=== PATIENT | male | born 1945 | race Caucasian/White ===

== ENCOUNTER 2017-03-12 08:05 | Emergency (ER) | payer MEDICARE ==
[~2017-03-12] VITALS: Ht 170.1 cm; Wt 77.1 kg
[~2017-03-12 08:05] MED LIST: ALPHAGAN-P 0.2%5 ML OPH; AMLODIPINE BESY1 TAB PO; AMLODIPINE BESY10 MG PO; AMLODIPINE BESYL5 MG PO; ANAPROX DS550 MG PO; BENADRYL25 MG PO; BRIMONIDINE TAR10 ML OPH; CETIRIZINE5 MG PO; CLONIDINE0.1 MG PO; COMBIVENT RESPIM4 GM INH; COSOPT 2%-0.5%10 ML OPH; COUMADIN2.5 M1 PO; COUMADIN5 M2 PO; DARVOCET N 1001 TAB PO; DAYPRO600 M1 PO; DILTIAZEM HCL120 M1 PO; DILTIAZEM360 MG PO; DORZOLAMIDE HYD10 M2 OP; HYDROCHLOROTHIA25 M1 PO; LATANOPROST2.5 ML IO; LEXAPRO10 MG PO; LISINOPRIL40 MG PO; LOPRESSOR100 M1 PO; LOPRESSOR100 MG PO; LOPRESSOR50 MG PO; METOPROLOL TAR100 M1 PO; MINOXIDIL2.5 MG PO; PERCOCET 325 MG1 TA3 PO; PRADAXA150 MG PO; PRAVACHOL40 MG PO; PRAVASTATIN SOD40 MG PO; PROVENTIL0.09 MG/A1 INH; PROVENTIL0.09 MG/AC IH; ROBAXIN750 MG PO; SODIUM CHLORIDE1 GM PO; SYMBICORT1 AE1 INH; ULTRAM50 MG PO; VITAMIN D32000 UNIT PO; Vicodin 5/500 505 MG PO; XALATAN 0.005%2.5 ML INTRAOC; [UNRECOGNIZED DRUG - OTHER]
[2017-03-12 08:13] VITALS: BP 147/69
[2017-03-12] MEDS ORDERED: NORVASC5 MG PO (08:23)
[2017-03-12] MEDS ORDERED: TRAZODONE50 MG PO (08:23)
[2017-03-12] MEDS ORDERED: LIPITOR20 MG PO (08:24)
[2017-03-12] MEDS ORDERED: PLAVIX75 M1 PO (08:24)
[2017-03-12] MEDS ORDERED: MELATONIN3 MG PO (08:25)
[2017-03-12] MEDS ORDERED: LEXAPRO10 MG PO (08:25)
[2017-03-12] MEDS ORDERED: BRIMONIDINE TAR15 ML OPH (08:26)
[2017-03-12] MEDS ORDERED: LASIX20 MG PO (08:26)
[2017-03-12] MEDS ORDERED: LATANOPROST2.5 ML OP (08:27)
[2017-03-12] MEDS ORDERED: COSOPT 2%-0.5%10 ML OPH (08:27)
[2017-03-12] MEDS ORDERED: PRADAXA150 MG PO (08:31)
== END 2017-03-12 09:48 | disposition home or self-care (01) ==
LOC: ED 08:05
DX: S82.235A Nondisplaced oblique fracture of shaft of left tibia, initial encounter for closed fracture (principal); F17.200 Nicotine dependence, unspecified, uncomplicated; I10 Essential (primary) hypertension; I48.91 Unspecified atrial fibrillation; E78.5 Hyperlipidemia, unspecified; J44.9 Chronic obstructive pulmonary disease, unspecified; Z79.899 Other long term (current) drug therapy; X50.1XXA Overexertion from prolonged static or awkward postures, initial encounter; Y93.89 Activity, other specified; Y92.9 Unspecified place or not applicable; Y99.9 Unspecified external cause status

== ENCOUNTER → 2017-03-28 | Outpatient (CLI) | payer MEDICARE ==
[~2017-03-28] MED LIST changes: +BRIMONIDINE TAR15 ML OPH; +LASIX20 MG PO; +LATANOPROST2.5 ML OP; +LIPITOR20 MG PO; +MELATONIN3 MG PO; +NORVASC5 MG PO; +PLAVIX75 M1 PO; +TRAZODONE50 MG PO
== END | disposition home or self-care (01) ==
LOC: ORTHO 00:28
DX: S82.209D Unspecified fracture of shaft of unspecified tibia, subsequent encounter for closed fracture with routine healing (principal); X58.XXXD Exposure to other specified factors, subsequent encounter

== ENCOUNTER 2017-04-02 06:27 | Inpatient (IN) | payer MEDICARE ==
[~2017-04-02] VITALS: Ht 170.2 cm; Wt 88.9 kg
[2017-04-02] VITALS (8 sets, daily range): BP systolic 117–181; BP diastolic 73–96
--- NOTE | ~2017-04-02 | PR ---
[place], [place] PROGRESS NOTE NAME: LO STRAUSS UNIT #: [id number] ROOM: 530 DOCTOR: VASYL LUNDBERG MDMADYSON BIRTHDATE: [birth year] DOS: 04/04/2017 SUBJECTIVE: The patient reported reduction in symptoms of shortness of breath. Denies symptoms of chest pain. Denies any symptoms of abdominal pain. He denies any symptoms of hemoptysis. OBJECTIVE: VITAL SIGNS: For the patient, which had been recorded, showed the temperature of the patient noted as normal, respiratory rate of 20, heart rate of 69, blood pressure 157/84. The pulse oxygen saturation of the patient recorded as 97% on 2 L nasal cannula. HEENT: No acute change. NECK: Supple. CARDIOVASCULAR: S1, S2 is audible. LUNGS: The patient was noted without any crackles or wheezing, breath sounds still noted diminished in the lower portion of the lungs bilaterally. Echocardiogram for the patient that was done for this patient was noted technically limited study for the patient. Overall, left ventricular ejection fraction was described probably normal. Possibility of diastolic dysfunction, the patient was also described. CBC of the patient that was done for the patient this morning, WBC count 12.0, hemoglobin 9.1, hematocrit 26.0, platelet count of 226,000. The BMP of patient this morning was noted BUN of 24, creatinine 1.75, sodium 126, glucose 132. Blood culture of the patient from admission showed no bacterial growths. IMPRESSION: 1. The patient with bilateral pleural fluid, most likely related to congestive heart failure, diastolic dysfunction. 2. Acute exacerbation of COPD was also noted for this patient as well. 3. Acute pneumonia also suspected and treated. 4. Hypernatremia, most likely related to current ongoing acute pulmonary pathology. The patient with pleural fluid as well. PLAN OF TREATMENT: The patient has been continued on the intravenous antibiotics, bronchodilators, corticosteroids and other treatment. Continuation of the patient's current medical management as in progress. Repeat another chest x-ray to reassess. Possible thoracentesis could be considered in the morning for this patient as well as the pleural fluid remains persistent for this patient. [place], [place] PROGRESS NOTE NAME: LO STRAUSS UNIT #: [id number] ROOM: 530 DOCTOR: MADYSON WILCOX MD BIRTHDATE: [birth year] MADYSON FALLON MD CM:PNTRANS [id number] MADYSON LUNDBERG MD 04/05/17 0034 interface
--- NOTE | ~2017-04-02 | PR ---
[place], [place] PROGRESS NOTE NAME: LO STRAUSS [facility] #: [id number] UNIT #: [id number] ROOM: 530 DOCTOR: VASYL LUNDBERG MD,MADYSON BIRTHDATE: [birth year] DOS: 04/03/2017 PULMONARY FOLLOWUP SUBJECTIVE: He was seen and examined on date of service 04/03/2017 The patient has been comfortably resting on his bed at this time. Shortness of breath has been noted, somewhat decreased. The cough has been noted decreased, patient not resolved. The cough was described , symptoms of acute chest pain at this time. OBJECTIVE: VITAL SIGNS: For the patient which has been recorded showed the temperature of the patient recorded as normal. The respiratory rate of the patient recorded as 20, heart rate 105, blood pressure 143/83. HEENT: No acute change at the present time. Chronic obesity noted. CARDIOVASCULAR: S1, S2 audible. LUNGS: The patient was noted without any wheezing. Scattered crackles of lung were noted. ABDOMEN: Soft, nontender. LABORATORY DATA: The patient's CT scan of the chest that was obtained yesterday for patient without contrast was reviewed for this patient. Bilateral [id number] sized pleural fluid was noted with the patient without any evidence of acute pulmonary infiltration. The chest x-ray was repeated this morning, shows persistent findings of pleural effusion at this time. The patient's BMP for this patient, BUN 20, creatinine 1.47, glucose 130. CBC of the patient's, hemoglobin 9.4, hematocrit 26.6. Platelet count was normal. IMPRESSION: The patient who has been currently admitted to the hospital noted acute exacerbation of chronic obstructive pulmonary disease with possibly superimposed. Acute congestive heart failure was suspected very likely with bilateral pleural fluid. There was no radiologic evidence of pneumonia noted with the patient on CT scan of the chest. PLAN OF TREATMENT: Cardiology assessment of the patient if not ordered for this patient should be done. Monitor objective for this patient. Diuretic therapy of the patient would be considered. Continue other supportive therapy, plan of management, other care and treatment and therapies. Usual care are the plan of management. Supportive care. Reduce the dose of Solu-Medrol to 40 mg b.i.d., as the wheezing has been noted better. Consider thoracentesis if the pleural fluid remains persistent. [place], [place] PROGRESS NOTE NAME: LO STRAUSS UNIT #: [id number] ROOM: [facility] DOCTOR: MADYSON WILCOX MD BIRTHDATE: [birth year] MADYSON FALLON MD CM:LG [id number] MADYSON LUNDBERG MD 04/03/17 1006 interface
--- NOTE | ~2017-04-02 | PROC NOTE ---
[place], [place] PROCEDURE NOTE NAME: LO STRAUSS [facility] #: [id number] UNIT #: [id number] ROOM: 530 DOCTOR: GAURAV JIMENEZ BIRTHDATE: [birth year] DOS: MODIFIED BARIUM SWALLOW BACKGROUND HISTORY AND MEDICAL HISTORY: The patient ability was referred for a modified barium swallow with primary diagnosis of COPD exacerbation, history of renal failure, pneumonitis, GERD, CHF and with recent chest x-ray, right lower lobe bronchopneumonia and pleural effusion were reported. The patient has natural teeth, many were missing, but reports he eat a regular diet. The patient was upset. He reports he has not eaten since yesterday and was waiting for his breakfast when he was brought for modified barium swallow. I explain to patient, physician wanted to assess his swallow. The patient denies history of chronic pneumonia, reports though 2 weeks ago, he was hospitalized for having difficulty breathing. The patient denies neuro history. METHODS AND PROCEDURES: The patient was on a gurney. He was seated upright and viewed in the lateral plane. This study was done in conjunction with Dr. Diop. The patient was able to administer liquid via cup and straw, applesauce via teaspoon and a cracker coated with barium by himself and follow directions. ORAL PHASE: Adequate oral phase, adequate mastication, oral sensory awareness. No oral residue. Adequate ability to form and propel cohesive bolus from the oral to pharyngeal phase. PHARYNGEAL PHASE: The patient demonstrated functional adequate normal oropharyngeal phase for his age. He had mild residue, but when cued for dry swallows, it was cleared on all consistencies. The patient did not demonstrate any aspiration. His laryngeal elevation appeared adequate. RECOMMENDATIONS AND IMPRESSION: No therapy or diet modifications recommended as oral and pharyngeal phases are judged as normal and functional. Thank you for this referral. GAURAV JIMENEZ CM:PROCNOTE:PROCEDURE NOTE [id number] GAURAV JIMENEZ
--- NOTE | ~2017-04-02 | CON ---
[place], [place] REPORT OF CONSULTATION NAME: LO STRAUSS [facility] #: [id number] UNIT #: [id number] ROOM: 530 DOCTOR: MADYSON WILCOX MD BIRTHDATE: [birth year] DOS: 04/02/2017 CONSULTATION REQUESTED BY: Hospitalist services. REASON FOR CONSULTATION: To assess the patient for ongoing acute respiratory symptoms. HISTORY OF PRESENT ILLNESS: This 71-year-old white male, unknown, with past history of diagnosis of COPD. The patient presented to the hospital Emergency Room by the family members. The patient has been noted with increased symptoms of shortness breath which has been occurring with exertion. The shortness of breath of the patient related noted at rest as well. The patient does have a chronic shortness of breath, but the recent worsening of the patient noted in the past couple of days. He does report symptoms of wheezing associated with current symptoms, but denies any cough. Denies symptoms of chest pain or chest tightness. Denies symptoms of hemoptysis or a chest trauma. The [facility] for [facility] problem. He was passed recently for the patient's possibility of oxygen supplementation to be prescribed for this patient by the family members and the patient was asked to have an appointment made for this patient for that. The patient was [facility], but not seen as the doctor was sick and reported to the patient he could not see the patient yesterday. REVIEW OF SYSTEMS: CONSTITUTIONAL SYMPTOMS: The patient noticed symptoms of fatigue and tiredness without symptoms of fever or chills. EYES: Denies any burning, redness, or tenderness. EARS, NOSE, THROAT SYMPTOMS: No sore throat, hoarseness, otalgia, postnasal drainage. CARDIOVASCULAR SYMPTOMS: Denies anginal pain, edema or other pain of the lower extremity noted. Intermittent edema of the lower extremities at times. GASTROINTESTINAL SYMPTOMS: Denies dysphagia, nausea, vomiting, diarrhea, abdominal pain, hematemesis, melena, dysphagia, or any abnormal weight loss history. MUSCULOSKELETAL: Denies acute joint pain, redness, or tenderness. CENTRAL NERVOUS SYSTEM: No dizziness, headache, diplopia, syncopal episodes or tingling sensation of the extremities. Remaining systems were reviewed with the patient, they were noted all negative. PAST MEDICAL HISTORY: 1. The patient was known with history of congestive heart failure, systolic/diastolic dysfunction unknown. 2. History of atrial fibrillation. 3. History of COPD/centrilobular emphysema. 4. Gastroesophageal reflux disease. 5. Essential hypertension. 6. History of peripheral vascular disease for this patient as well. 7. History of depression. 8. Past history of alcohol use. [place], [place] REPORT OF CONSULTATION NAME: LO STRAUSS UNIT #: [id number] ROOM: [facility] DOCTOR: SURI WILCOX MDM BIRTHDATE: [birth year] PAST SURGICAL HISTORY: 1. 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 2. Carotid endarterectomy. 3. Appendectomy. 4. Surgery of the left leg as well. SOCIAL HISTORY: The patient was noted to use 1 beer a day. Denies history of alcohol use or any illicit drugs. He has been noted with tobacco use for longtime, the patient since teenager, pack of cigarettes per day, that was discontinued in the end of 2015. Denies any history of illicit drug use. There was no history of occupation related pulmonary exposure. FAMILY HISTORY: The patient's both parents have been . HOME MEDICATIONS: Listed use of: 1. Proventil HFA inhaler p.r.n. use. 2. Norvasc 5 mg p.o. b.i.d. 3. Lipitor 20 mg p.o. daily. 4. Symbicort 160/4.5 two puffs b.i.d. 5. Plavix 75 mg daily. 6. Pradaxa 150 mg b.i.d. 7. Pepcid 20 mg daily. 8. Folic acid 1 mg p.o. daily. 9. Lasix 20 mg p.o. daily. 10. Melatonin 3 mg daily at bedtime. 11. Metoprolol tartrate 50 mg p.o. t.i.d. 12. Spiriva 18 mcg inhalation daily. 13. Trazodone 50 mg at bedtime and other p.r.n. medications and use of 3 different eyedrops. DRUG ALLERGIES: Noted for no known drug allergies. PHYSICAL EXAMINATION: GENERAL: A 71-year-old white male currently noted to be awake and alert without any distress. VITAL SIGNS: Height of 5 feet 7 inches, weight of 196 pounds, BMI 30.7. Vital signs show a temperature normal, respiratory rate 20-18, heart rate of 96-77, blood pressure 147/69-139/87. Intake for this patient and output was not recorded as yet. Pulse oxygen saturation was noted as 97% on room air. HEENT: Examination shows head was atraumatic. Eyes nonicterus with moderate obesity. Neck was Supple. Decreased posterior pharyngeal space. CARDIOVASCULAR: S1, S2 audible. LUNGS: The patient was noted with moderate reduction of the breath sounds noted in the lungs with expiratory wheezing. There were no crackles. ABDOMEN: Soft, nontender and obese. EXTREMITIES: The patient had above knee amputation of right lower extremity, mild edema of the left lower extremity was noted. MUSCULOSKELETAL: Showed no deformities. SKIN: Showed no lesions or rashes of visible areas. [place], [place] REPORT OF CONSULTATION NAME: LO STRAUSS UNIT #: [id number] ROOM: [facility] [birth year] LABORATORY DATA: Lactic acid of the patient on 03/28/2017 was noted at 1.2. CBC of the patient of 04/02/2017, WBC count was normal, hemoglobin of 10.2, hematocrit 28.3, platelet count 231,000, all noted normal. The INR today was noted 1.4, which is subtherapeutic. The BMP this morning, BUN 16, creatinine 1.31, glucose 103, sodium 120, chloride of 83 for this patient was noted, proBNP 7805. Chest x-ray of the patient that was done when the patient in the Emergency Room, shows bibasilar area of infiltration of the patient noted with prominent pulmonary arteries, rule out right hilar lymphadenopathy. The chest x-ray of the patient previously of 05/14/2016, the patient was noted with prominent hilar area for this patient without any pulmonary infiltration. IMPRESSION: 1. The patient who has been currently noted with current acute respiratory symptoms with possibility of acute exacerbation of COPD for this patient with basilar area of atelectasis, superimposed acute pneumonia for this patient, would be considered as acute community-acquired infection in the patient with gram-positive organisms. 2. History of nicotine dependence until about 7 months ago. 3. The patient with mild anemia for this patient was noted as well. 4. Possible diagnosis for the patient to be clinically considered as obstructive sleep apnea disorder as well. 5. History of essential hypertension of the patient was noted as well. 6. Elevation of creatinine, possibly acute kidney injury secondary to intravascular volume contraction would be considered. PLAN OF TREATMENT: The patient has been admitted to the hospital, will be started on IV Solu-Medrol and bronchodilators every 4 hours. Sputum for Gram stain culture will be obtained. The antibiotic, Levaquin, will suffice for the patient for the treatment of community-acquired infection. Repeat chest x-ray, PA and lateral view in the morning for the patient's most definitive assessment. Also consider obtaining a CT scan of the chest with IV contrast upon improvement in the creatinine for this patient to rule out right hilar lymphadenopathy. The oxygen supplementation to be given in case if the oxygen saturation less than 92%. Supportive therapy plan and management. Other usual care plan of therapies. Thanks for allowing me to participate in the care of this patient. [place], [place] REPORT OF CONSULTATION NAME: LO STRAUSS UNIT #: [id number] ROOM: [facility] DOCTOR: MADYSON WILCOX MD BIRTHDATE: [birth year] MADYSON FALLON MD CM:CONSTR:REPORT OF CONSULTATION 1223 04/03/17 0210 interface
--- NOTE | ~2017-04-02 | PR ---
[place], [place] PROGRESS NOTE NAME: LO STRAUSS UNIT #: [id number] ROOM: 530 DOCTOR: MADYSON WILCOX MD BIRTHDATE: [birth year] DOS: 04/05/2017 SUBJECTIVE: He has been doing very well at this time with reduction of symptoms of shortness breath was noted. There was mild cough. There were no symptoms of chest pain or any abdominal pain. OBJECTIVE: VITAL SIGNS: Normal temperature, respiratory rate 18, heart rate of 65, blood pressure 140/76, 131/84. Pulse oxygen saturation on 2 liters nasal cannula 99% saturation. HEENT: Examination shows chronic obesity. NECK: Supple, short and obese. CARDIOVASCULAR: S1, S2 audible. LUNGS: The patient was noted without any crackles, rhonchi or wheezing at the present time. Breaths are noted mildly decreased in the lower portion of the lungs bilaterally. ABDOMEN: Soft and nontender. EXTREMITIES: Remains unchanged. LABORATORY DATA: BMP today: BUN 26, creatinine 1.76. Chest x-ray that was done as it ordered. Review of the patient shows improvement in the pneumonia. The patient noted pleural fluid. The pleural fluids were noted small for this patient at this time bilaterally. However, the resolution of the infiltration noted incomplete. IMPRESSION: 1. Resolving acute pneumonia with bilateral pleural fluid for this patient as well. 2. Improvement in the respiratory status. The patient has been continued with gradual and progressive improvement as noted. PLAN OF TREATMENT: The patient does have an IV line for this patient at this time, getting oral antibiotics. That will be continued. Discharge planning could be started the patient on oral antibiotics in the next 24 hours. [place], [place] PROGRESS NOTE NAME: LO STRAUSS UNIT #: [id number] ROOM: 530 DOCTOR: MADYSON WILCOX MD BIRTHDATE: [birth year] MADYSON FALLON MD CM:PNTRANS [phone] MADYSON LUNDBERG MD 04/06/17 0148 interface
--- NOTE | ~2017-04-02 | PR ---
[place], [place] PROGRESS NOTE NAME: LO STRAUSS [facility] #: [id number] UNIT #: [id number] ROOM: 530 DOCTOR: VASYL LUNDBERG MD,MADYSON BIRTHDATE: [birth year] DOS: 04/06/2017 SUBJECTIVE: The patient has been noted comfortable at this time, resting and was considered for home discharge. He has not been noted symptoms of coughing, sputum expectoration or any chest pain. OBJECTIVE: VITAL SIGNS: The temperature noted normal, respiratory rate 18, heart rate 74, blood pressure 150/70. Pulse oxygen saturation on 2 liters nasal cannula 95% saturation. HEENT: Examination shows no acute change. NECK: Supple. CARDIOVASCULAR: S1, S2 audible. LUNGS: Noted without any wheezing or crackles. Breaths are noted decreased in the lower portion of the lungs bilaterally. ABDOMEN: Soft, nontender. IMPRESSION: Acute pneumonia with pleural ____ patient was noted at this time, responding to current treatment progressively. PLAN OF TREATMENT: Discharge was planned for this patient. He could be seen in the office for followup visit for further assessment of pulmonary status. MADYSON FALLON MD CM:PNTRANS [phone] MADYSON LUNDBERG MD 04/06/171801 interface
[2017-04-02 06:57] LABS: BASO % 0.2 % (0.0-1.0); EOS # 0.1 10*3/uL (0.0-0.4); EOS % 1.1 % (1.0-4.0); HEMATOCRIT 28.3 % (42.0-52.0); HEMOGLOBIN 10.2 g/dl (14.0-18.0); IG # 0.1 10*3/uL (0.0-0.1); LYMPH # 0.6 10*3/uL (1.3-4.4); MEAN CELL VOLUME 88.2 fl (80.0-94.0); MEAN CORPUSCULAR HGB 31.8 pg (27.0-31.0); MEAN PLATELET VOLUME 9.1 fl (9.6-12.3); MONO # 0.8 10*3/uL (0.1-1.0); MONO % 7.8 % (3.0-9.0); NEUT # 8.5 10*3/uL (2.3-7.9); NEUT % 84.3 % (47.0-73.0); PLATELET COUNT AUTOMATED 231 10*3/uL (130-400); RED BLOOD COUNT 3.21 10*6/uL (4.50-5.90); RED CELL DISTRI WIDTH 15.4 % (0-14.5); WHITE BLOOD COUNT 10.1 10*3/uL (4.8-10.8)
[2017-04-02 07:07] LABS: INTERNATIONAL NORM RATIO 1.4 (2.0-3.5); PROTHROMBIN TIME 15.3 SECONDS (9.0-12.4)
[2017-04-02 07:14] LABS: ALBUMIN 3.3 gm/dl (3.1-4.5); ALKALINE PHOSPHATASE 117 U/L (45-117); BILIRUBIN, DIRECT 0.3 mg/dL (0.0-0.2); BILIRUBIN, TOTAL 0.8 mg/dl (0.2-1.0); BUN 16 mg/dl (7-24); CARBON DIOXIDE 26 mmol/L (21-32); CHLORIDE 83 mmol/L (98-107); EST GLOM FILT AFRICAN AMERICAN > 60 ml/min; GLUCOSE 102 mg/dL (65-99); MAGNESIUM 1.8 mg/dL (1.5-2.1); POTASSIUM 3.9 mmol/L (3.5-5.1); SGOT/AST 20 IU/L (3-35); SGPT/ALT 12 U/L (12-78); SODIUM 120 mmol/L (136-145); TOTAL PROTEIN 7.7 gm/dL (6.4-8.2)
[2017-04-02 07:26] LABS: TROPONIN I < 0.015 ng/ml (<0.045)
[2017-04-02] MEDS ORDERED: METOPROLOL TART50 M1 PO (09:58)
[2017-04-02] MEDS ORDERED: MIRALAX POWDER255 G1 PO (09:59)
[2017-04-02] MEDS ORDERED: CALCIUM 600600 M2 PO (10:00)
[2017-04-02] MEDS ORDERED: PEPCID20 MG PO (10:00)
[2017-04-02] MEDS ORDERED: NATURE'S BLEND F1 MG PO (10:01)
[2017-04-02] MEDS ORDERED: SPIRIVA18 MCG PO (10:02)
[2017-04-02 18:32] LABS: POTASSIUM 3.7 mmol/L (3.5-5.1)
[2017-04-03] VITALS: BP 160/83
[2017-04-03 06:21] LABS: HEMATOCRIT 26.6 % (42.0-52.0); HEMOGLOBIN 9.4 g/dl (14.0-18.0); MEAN CELL VOLUME 88.4 fl (80.0-94.0); MEAN CORPUSCULAR HGB 31.2 pg (27.0-31.0); MEAN CORPUSCULAR HGB CONC 35.3 g/dl (33.0-37.0); PLATELET COUNT AUTOMATED 240 10*3/uL (130-400); RED BLOOD COUNT 3.01 10*6/uL (4.50-5.90); RED CELL DISTRI WIDTH 15.5 % (0-14.5); WHITE BLOOD COUNT 10.1 10*3/uL (4.8-10.8)
[2017-04-03 06:46] LABS: LYMPHOCYTE # 0.7 10*3/uL (1.3-4.4); MONOCYTE # 0.2 10*3/uL (0.1-1.0); NEUTROPHIL # 9.2 10*3/uL (2.3-7.9); NEUTROPHILS 91 % (47-73); TOTAL CELLS COUNTED 100 #CELLS
[2017-04-03 06:47] LABS: PLATELET SUFFICIENCY NORMAL (NORMAL)
[2017-04-03 06:55] LABS: PHOSPHOROUS 3.2 mg/dL (2.5-4.9); POTASSIUM 3.9 mmol/L (3.5-5.1)
[2017-04-03 07:03] LABS: FREE T4 1.05 ng/dl (0.76-1.46); THYROID STIM HORMONE (HS) 0.508 uIU/ml (0.358-4.75)
[2017-04-03 07:05] LABS: HEMOGLOBIN A1c 5.3 % (4.8-5.6)
[2017-04-03 08:00] VITALS: BP 149/83
[2017-04-03 08:07] LABS: FOLIC ACID 14.68 ng/mL (>5.38)
[2017-04-03 12:00] VITALS: BP 153/83
[2017-04-03 14:01] LABS: BILIRUBIN NEGATIVE (NEGATIVE); BLOOD 1+ (NEGATIVE); CLARITY CLEAR (CLEAR); COLOR YELLOW (YELLOW); GLUCOSE TRACE (NEGATIVE); KETONE NEGATIVE (NEGATIVE); LEUKO ESTERASE NEGATIVE (NEGATIVE); NITRITE NEGATIVE (NEGATIVE); PH 5.5 (5.0-9.0); PROTEIN 2+ (NEGATIVE); UROBILINOGEN 0.2 E.U./dl (0.2-1.0)
[2017-04-03 14:21] LABS: WBC 0-2 wbc/hpf (0-5)
[2017-04-03 16:00] VITALS: BP 131/90
[2017-04-03 20:00] VITALS: BP 147/72
[2017-04-04] VITALS: BP 144/82
[2017-04-04 06:18] LABS: BASO % 0.1 % (0.0-1.0); HEMOGLOBIN 9.1 g/dl (14.0-18.0); IG # 0.1 10*3/uL (0.0-0.1); LYMPH # 0.5 10*3/uL (1.3-4.4); LYMPH % 4.2 % (27.0-41.0); MEAN CORPUSCULAR HGB 32.2 pg (27.0-31.0); MEAN PLATELET VOLUME 9.5 fl (9.6-12.3); MONO # 0.9 10*3/uL (0.1-1.0); MONO % 7.2 % (3.0-9.0); NEUT # 10.5 10*3/uL (2.3-7.9); NEUT % 87.7 % (47.0-73.0); PLATELET COUNT AUTOMATED 226 10*3/uL (130-400); RED BLOOD COUNT 2.83 10*6/uL (4.50-5.90); RED CELL DISTRI WIDTH 15.7 % (0-14.5)
[2017-04-04 06:28] LABS: MEAN CELL VOLUME 91.9 fl (80.0-94.0)
[2017-04-04 06:49] LABS: MAGNESIUM 2.3 mg/dL (1.5-2.1); PHOSPHOROUS 2.8 mg/dL (2.5-4.9)
[2017-04-04 08:00] VITALS: BP 157/84
[2017-04-04 12:00] VITALS: BP 168/78
[2017-04-04 16:00] VITALS: BP 162/90
[2017-04-04 20:00] VITALS: BP 169/73
[2017-04-05] VITALS (7 sets, daily range): BP systolic 98–147; BP diastolic 46–84
[2017-04-05 07:21] LABS: POTASSIUM 3.7 mmol/L (3.5-5.1)
[2017-04-06] VITALS: BP 122/92
[2017-04-06 06:58] LABS: POTASSIUM 3.7 mmol/L (3.5-5.1)
[2017-04-06 08:00] VITALS: BP 150/70
[2017-04-06] MEDS ORDERED: DOXYCYCLINE100 M3 PO (10:47)
[2017-04-06] MEDS ORDERED: OXYGEN NAS (10:47)
[2017-04-06] MEDS ORDERED: APRESOLINE25 MG PO (10:47)
== END 2017-04-06 11:31 | disposition home or self-care (01) | DRG 291 ==
LOC: ED 06:27 → EDHOLD 08:06 → 5E 08:06
PROVIDERS: Emergency Medicine; Internal Medicine; Internal Medicine Nephrology
PROC: BD1BYZZ Fluoroscopy of Mouth/Oropharynx using Other Contrast (ICD-10-PCS; principal; 2017-04-02)
DX: I11.0 Hypertensive heart disease with heart failure (principal); N17.0 Acute kidney failure with tubular necrosis; J15.9 Unspecified bacterial pneumonia; I48.2 Chronic atrial fibrillation; Z89.611 Acquired absence of right leg above knee; Z99.81 Dependence on supplemental oxygen; D64.9 Anemia, unspecified; J44.0 Chronic obstructive pulmonary disease with (acute) lower respiratory infection; E87.1 Hypo-osmolality and hyponatremia; J44.1 Chronic obstructive pulmonary disease with (acute) exacerbation; I50.31 Acute diastolic (congestive) heart failure; E78.5 Hyperlipidemia, unspecified; K21.9 Gastro-esophageal reflux disease without esophagitis; F32.9 Major depressive disorder, single episode, unspecified; I73.9 Peripheral vascular disease, unspecified; Z87.81 Personal history of (healed) traumatic fracture; Z90.49 Acquired absence of other specified parts of digestive tract; Z72.89 Other problems related to lifestyle; Z87.891 Personal history of nicotine dependence; Z79.899 Other long term (current) drug therapy

== ENCOUNTER → 2017-05-01 | Day surgery (SDC) | payer MEDICARE ==
[~2017-05-01] VITALS: Ht 170.1 cm; Wt 87.1 kg
[~2017-05-01] MED LIST changes: +APRESOLINE25 MG PO; +CALCIUM 600600 M2 PO; +DOXYCYCLINE100 M3 PO; +METOPROLOL TART50 M1 PO; +MIRALAX POWDER255 G1 PO; +NATURE'S BLEND F1 MG PO; +OXYGEN NAS; +PEPCID20 MG PO; +SPIRIVA18 MCG PO
--- NOTE | ~2017-05-01 | WILSON ---
[place], [place] CATARACT EXTRACTION NAME: LO STRAUSS [facility] #: [id number] UNIT #: [id number] ROOM: DOCTOR: ALISHA REESE MD DATE: 05/01/17 PREOPERATIVE DIAGNOSIS: Cataract, right eye. POSTOPERATIVE DIAGNOSIS: Cataract, right eye. OPERATION: Extracapsular cataract extraction by phacoemulsification with posterior chamber intraocular lens implantation, right eye. ANESTHESIA: Monitored standby. OPERATIVE FINDINGS AND PROCEDURE: 2% Xylocaine topical anesthetic gel was applied to the eye in the preop area. The patient was taken to the operating room and prepped and draped in the standard fashion for sterile intraocular surgery. A time out procedure was performed verifying correct patient, correct site and corrects lens with Will Reese M.D. The operating microscope was swung into position and the lid speculum was inserted. Using a paracentesis blade, a paracentesis was made through clear cornea. Viscoelastic was used to fill the anterior chamber. Using a metal keratome a 2.4 mm self-sealing clear corneal cataract incision was made temporally at the limbus. Using a pre-bent 25 gauge cystotome needle, a standard continuous curvilinear capsulorrhexis was performed. The anterior capsule was removed with forceps. The lens nucleus was hydrodissected and phacoemulsified in the posterior chamber. Cortical material was removed with the irrigation aspiration hand piece and the posterior capsule was then polished with a curet under irrigation. The posterior chamber and capsular bag were filled with viscoelastic. A posterior chamber intraocular lens manufactured by: [employer], Model #[id number], and 21.0 diopters in strength was then inserted into the posterior chamber and within the capsular bag using the lens cartridge and injector system. Viscoelastic was removed using the irrigation aspiration handpiece. The anterior chamber was filled with balanced salt solution through the paracentesis. Both the paracentesis site and cataract incisions were hydrated with BSS and verified to be water-tight and self-sealing. Cefuroxime 1 mg/0.1 mL was injected into the anterior chamber through the paracentesis site. The incision checked to be water-tight using a Weck-gadiel sponge. The integrity of the cataract wound and ocular tension were checked. Lid speculum and drapes were removed. One drop of Ocuflox was applied to the eye. The patient was transferred from the operating room to the recovery room in satisfactory condition. ALISHA DEXTER MD CM:OPRECORD:CATARACT EXTRACTION 1200 1200 ALISHA REESE MD 05/02/17 1211 AMARIS [email or web address].R
[2017-05-01 07:57] VITALS: BP 166/93
[2017-05-01 08:49] VITALS: BP 148/94
[2017-05-01 09:04] VITALS: BP 144/75
[2017-05-01 09:19] VITALS: BP 151/74
== END | disposition home or self-care (01) ==
LOC: SDC 04:30
DX: H26.9 Unspecified cataract (principal); J44.9 Chronic obstructive pulmonary disease, unspecified; K21.9 Gastro-esophageal reflux disease without esophagitis; I11.0 Hypertensive heart disease with heart failure; I50.9 Heart failure, unspecified; H40.9 Unspecified glaucoma; I48.91 Unspecified atrial fibrillation; L40.9 Psoriasis, unspecified; Z90.49 Acquired absence of other specified parts of digestive tract; Z98.890 Other specified postprocedural states; Z87.891 Personal history of nicotine dependence; Z79.01 Long term (current) use of anticoagulants

== ENCOUNTER 2017-05-15 06:26 | Inpatient (IN) | payer MEDICARE ==
[~2017-05-15] VITALS: Ht 170.1 cm; Wt 93.5 kg
[2017-05-15] VITALS (7 sets, daily range): BP systolic 134–158; BP diastolic 71–94
[2017-05-15] MEDS ORDERED: APRESOLINE25 MG PO (06:31)
[2017-05-15] MEDS ORDERED: OXYGEN NAS (06:31)
[2017-05-15] MEDS ORDERED: NORVASC5 MG PO (06:32)
[2017-05-15] MEDS ORDERED: SYMBICORT1 AE1 INH (06:32)
[2017-05-15] MEDS ORDERED: PROVENTIL0.09 MG/A1 INH (06:32)
[2017-05-15] MEDS ORDERED: TRAZODONE50 MG PO (06:32)
[2017-05-15] MEDS ORDERED: PLAVIX75 M1 PO (06:33)
[2017-05-15] MEDS ORDERED: LIPITOR20 MG PO (06:33)
[2017-05-15] MEDS ORDERED: MELATONIN3 MG PO (06:33)
[2017-05-15] MEDS ORDERED: LEXAPRO10 MG PO (06:33)
[2017-05-15] MEDS ORDERED: LASIX20 MG PO (06:34)
[2017-05-15] MEDS ORDERED: BRIMONIDINE TAR10 ML OPH (06:34)
[2017-05-15] MEDS ORDERED: LATANOPROST2.5 ML OP (06:35)
[2017-05-15] MEDS ORDERED: COSOPT 2%-0.5%10 ML OPH (06:35)
[2017-05-15] MEDS ORDERED: MIRALAX17 GM PO (06:36)
[2017-05-15] MEDS ORDERED: LOPRESSOR50 M1 PO (06:36)
[2017-05-15] MEDS ORDERED: PRADAXA150 MG PO (06:36)
[2017-05-15 06:56] LABS: BILIRUBIN NEGATIVE (NEGATIVE); BLOOD NEGATIVE (NEGATIVE); CLARITY SL CLOUDY (CLEAR); COLOR YELLOW (YELLOW); GLUCOSE NEGATIVE (NEGATIVE); KETONE NEGATIVE (NEGATIVE); LEUKO ESTERASE NEGATIVE (NEGATIVE); NITRITE NEGATIVE (NEGATIVE); PH 6.5 (5.0-9.0); PROTEIN 2+ (NEGATIVE); SPECIFIC GRAVITY 1.015 (1.005-1.030)
[2017-05-15 07:00] LABS: BASO % 0.2 % (0.0-1.0); EOS # 0.2 10*3/uL (0.0-0.4); EOS % 1.8 % (1.0-4.0); HEMATOCRIT 28.3 % (42.0-52.0); HEMOGLOBIN 9.2 g/dl (14.0-18.0); IG # 0.1 10*3/uL (0.0-0.1); LYMPH # 1.2 10*3/uL (1.3-4.4); LYMPH % 12.4 % (27.0-41.0); MEAN CELL VOLUME 96.3 fl (80.0-94.0); MEAN CORPUSCULAR HGB 31.3 pg (27.0-31.0); MEAN CORPUSCULAR HGB CONC 32.5 g/dl (33.0-37.0); MEAN PLATELET VOLUME 9.4 fl (9.6-12.3); MONO # 0.7 10*3/uL (0.1-1.0); MONO % 7.3 % (3.0-9.0); NEUT # 7.8 10*3/uL (2.3-7.9); NEUT % 77.6 % (47.0-73.0); PLATELET COUNT AUTOMATED 197 10*3/uL (130-400); RED BLOOD COUNT 2.94 10*6/uL (4.50-5.90)
[2017-05-15 07:01] LABS: BACTERIA TRACE; WBC 0-2 wbc/hpf (0-5)
[2017-05-15 07:02] LABS: URINE REFLEX COMMENT NO (NO)
[2017-05-15 07:20] LABS: ALBUMIN 3.2 gm/dl (3.1-4.5); ALKALINE PHOSPHATASE 110 U/L (45-117); BILIRUBIN, TOTAL 0.4 mg/dl (0.2-1.0); BUN 22 mg/dl (7-24); CARBON DIOXIDE 27 mmol/L (21-32); CHLORIDE 101 mmol/L (98-107); CKMB 1.4 ng/ml (0.5-3.6); EST GLOM FILT AFRICAN AMERICAN 56 ml/min; GLUCOSE 95 mg/dL (65-99); POTASSIUM 3.8 mmol/L (3.5-5.1); SGOT/AST 17 IU/L (3-35); SGPT/ALT 14 U/L (12-78); SODIUM 139 mmol/L (136-145)
[2017-05-15 07:33] LABS: TROPONIN I < 0.015 ng/ml (<0.045)
[2017-05-16] VITALS: BP 156/76
[2017-05-16 07:21] LABS: HEMATOCRIT 26.9 % (42.0-52.0); HEMOGLOBIN 8.7 g/dl (14.0-18.0); MEAN CELL VOLUME 96.4 fl (80.0-94.0); MEAN CORPUSCULAR HGB 31.2 pg (27.0-31.0); MEAN CORPUSCULAR HGB CONC 32.3 g/dl (33.0-37.0); MEAN PLATELET VOLUME 10.2 fl (9.6-12.3); PLATELET COUNT AUTOMATED 194 10*3/uL (130-400); RED BLOOD COUNT 2.79 10*6/uL (4.50-5.90); RED CELL DISTRI WIDTH 13.8 % (0-14.5); WHITE BLOOD COUNT 14.4 10*3/uL (4.8-10.8)
[2017-05-16 07:51] LABS: HYPOCHROMIA SLIGHT; LYMPHOCYTE # 0.1 10*3/uL (1.3-4.4); MONOCYTE # 0.3 10*3/uL (0.1-1.0); NEUTROPHILS 97 % (47-73); PLATELET SUFFICIENCY NORMAL (NORMAL); POLYCHROMASIA SLIGHT; TOTAL CELLS COUNTED 100 #CELLS
[2017-05-16 07:53] LABS: INTERNATIONAL NORM RATIO 1.3 (2.0-3.5); PROTHROMBIN TIME 14.3 SECONDS (9.0-12.4)
[2017-05-16 07:55] LABS: FREE T4 0.94 ng/dl (0.76-1.46); POTASSIUM 3.9 mmol/L (3.5-5.1)
[2017-05-16 08:00] VITALS: BP 146/68
[2017-05-16 08:01] LABS: THYROID STIM HORMONE (HS) 0.359 uIU/ml (0.358-4.75)
[2017-05-16 08:57] LABS: FOLIC ACID 19.13 ng/mL (>5.38); VITAMIN D, 25-HYDROXY 35.1 ng/mL (30-100)
[2017-05-16 12:00] VITALS: BP 146/70
[2017-05-16 16:00] VITALS: BP 148/62
[2017-05-16 20:00] VITALS: BP 140/80
[2017-05-17] VITALS: BP 130/80
[2017-05-17 05:53] LABS: HEMATOCRIT 28.7 % (42.0-52.0); HEMOGLOBIN 9.2 g/dl (14.0-18.0); MEAN CELL VOLUME 98.6 fl (80.0-94.0); MEAN CORPUSCULAR HGB 31.6 pg (27.0-31.0); MEAN CORPUSCULAR HGB CONC 32.1 g/dl (33.0-37.0); MEAN PLATELET VOLUME 10.2 fl (9.6-12.3); PLATELET COUNT AUTOMATED 199 10*3/uL (130-400); RED BLOOD COUNT 2.91 10*6/uL (4.50-5.90); RED CELL DISTRI WIDTH 13.9 % (0-14.5); WHITE BLOOD COUNT 17.1 10*3/uL (4.8-10.8)
[2017-05-17 05:55] LABS: POTASSIUM 3.8 mmol/L (3.5-5.1)
[2017-05-17 06:01] LABS: INTERNATIONAL NORM RATIO 1.4 (2.0-3.5); PROTHROMBIN TIME 15.4 SECONDS (9.0-12.4)
[2017-05-17 06:51] LABS: LYMPHOCYTE # 0.3 10*3/uL (1.3-4.4); MONOCYTE # 0.3 10*3/uL (0.1-1.0); NEUTROPHIL # 16.4 10*3/uL (2.3-7.9); NEUTROPHILS 96 % (47-73); PLATELET SUFFICIENCY NORMAL (NORMAL); TOTAL CELLS COUNTED 100 #CELLS
[2017-05-17 12:00] VITALS: BP 146/80
[2017-05-17 16:00] VITALS: BP 140/80
[2017-05-17 20:00] VITALS: BP 126/80
[2017-05-18] VITALS: BP 132/72
[2017-05-18 06:53] LABS: HEMATOCRIT 27.2 % (42.0-52.0); HEMOGLOBIN 8.8 g/dl (14.0-18.0); MEAN CELL VOLUME 98.6 fl (80.0-94.0); MEAN CORPUSCULAR HGB 31.9 pg (27.0-31.0); MEAN CORPUSCULAR HGB CONC 32.4 g/dl (33.0-37.0); MEAN PLATELET VOLUME 9.8 fl (9.6-12.3); PLATELET COUNT AUTOMATED 172 10*3/uL (130-400); RED BLOOD COUNT 2.76 10*6/uL (4.50-5.90); RED CELL DISTRI WIDTH 14.3 % (0-14.5); WHITE BLOOD COUNT 12.8 10*3/uL (4.8-10.8)
[2017-05-18 07:13] LABS: LYMPHOCYTE # 0.8 10*3/uL (1.3-4.4); MONOCYTE # 0.1 10*3/uL (0.1-1.0); NEUTROPHIL # 11.9 10*3/uL (2.3-7.9); NEUTROPHILS 93 % (47-73); PLATELET SUFFICIENCY NORMAL (NORMAL); POLYCHROMASIA SLIGHT; TOTAL CELLS COUNTED 100 #CELLS
[2017-05-18 07:26] LABS: POTASSIUM 3.6 mmol/L (3.5-5.1)
[2017-05-18 07:28] LABS: INTERNATIONAL NORM RATIO 1.4 (2.0-3.5)
[2017-05-18 08:00] VITALS: BP 120/80
[2017-05-18 12:00] VITALS: BP 122/76
[2017-05-18 16:00] VITALS: BP 150/80
[2017-05-18 20:00] VITALS: BP 140/80
[2017-05-19] VITALS: BP 130/80
[2017-05-19 06:15] LABS: BASO % 0.1 % (0.0-1.0); HEMATOCRIT 28.9 % (42.0-52.0); IG # 0.1 10*3/uL (0.0-0.1); LYMPH # 0.4 10*3/uL (1.3-4.4); LYMPH % 3.5 % (27.0-41.0); MEAN CELL VOLUME 98.6 fl (80.0-94.0); MEAN CORPUSCULAR HGB 30.7 pg (27.0-31.0); MEAN CORPUSCULAR HGB CONC 31.1 g/dl (33.0-37.0); MEAN PLATELET VOLUME 10.2 fl (9.6-12.3); MONO # 0.6 10*3/uL (0.1-1.0); MONO % 5.2 % (3.0-9.0); NEUT % 90.1 % (47.0-73.0); PLATELET COUNT AUTOMATED 193 10*3/uL (130-400); RED BLOOD COUNT 2.93 10*6/uL (4.50-5.90); RED CELL DISTRI WIDTH 14.1 % (0-14.5); WHITE BLOOD COUNT 12.2 10*3/uL (4.8-10.8)
[2017-05-19 06:35] LABS: POTASSIUM 3.4 mmol/L (3.5-5.1)
[2017-05-19 06:42] LABS: MONOCYTE # 0.2 10*3/uL (0.1-1.0); NEUTROPHILS 90 % (47-73); POLYCHROMASIA SLIGHT; TOTAL CELLS COUNTED 100 #CELLS
[2017-05-19 06:43] LABS: PLATELET SUFFICIENCY NORMAL (NORMAL)
[2017-05-19 08:00] VITALS: BP 142/82
[2017-05-19 12:00] VITALS: BP 130/62
[2017-05-19 13:47] LABS: BILIRUBIN NEGATIVE (NEGATIVE); BLOOD NEGATIVE (NEGATIVE); CLARITY CLEAR (CLEAR); COLOR YELLOW (YELLOW); GLUCOSE NEGATIVE (NEGATIVE); KETONE NEGATIVE (NEGATIVE); LEUKO ESTERASE NEGATIVE (NEGATIVE); NITRITE NEGATIVE (NEGATIVE); PH 5.5 (5.0-9.0); PROTEIN 2+ (NEGATIVE); SPECIFIC GRAVITY 1.025 (1.005-1.030); UROBILINOGEN 0.2 E.U./dl (0.2-1.0)
[2017-05-19 13:55] LABS: URINE TP/CRE RATIO 1.5 (<0.21)
[2017-05-19 13:59] LABS: BACTERIA TRACE; WBC 0-2 wbc/hpf (0-5); YEAST 1+
[2017-05-19 16:00] VITALS: BP 140/80
[2017-05-19 20:00] VITALS: BP 142/68
[2017-05-20] VITALS: BP 148/78
[2017-05-20 06:48] LABS: ALBUMIN 2.9 gm/dl (3.1-4.5); MAGNESIUM 2.1 mg/dL (1.5-2.1); PHOSPHOROUS 3.2 mg/dL (2.5-4.9); POTASSIUM 3.5 mmol/L (3.5-5.1)
[2017-05-20 08:00] VITALS: BP 122/86
[2017-05-20 12:00] VITALS: BP 148/68
[2017-05-20 20:00] VITALS: BP 102/84
[2017-05-20 22:00] VITALS: BP 98/58
[2017-05-21] VITALS (12 sets, daily range): BP systolic 100–152; BP diastolic 54–99
[2017-05-21 06:52] LABS: BASO % 0.1 % (0.0-1.0); HEMATOCRIT 29.3 % (42.0-52.0); HEMOGLOBIN 9.3 g/dl (14.0-18.0); IG # 0.2 10*3/uL (0.0-0.1); LYMPH # 0.8 10*3/uL (1.3-4.4); LYMPH % 4.4 % (27.0-41.0); MEAN CELL VOLUME 98.3 fl (80.0-94.0); MEAN CORPUSCULAR HGB 31.2 pg (27.0-31.0); MEAN CORPUSCULAR HGB CONC 31.7 g/dl (33.0-37.0); MEAN PLATELET VOLUME 10.9 fl (9.6-12.3); MONO # 1.4 10*3/uL (0.1-1.0); MONO % 7.6 % (3.0-9.0); NEUT % 86.7 % (47.0-73.0); PLATELET COUNT AUTOMATED 232 10*3/uL (130-400); RED BLOOD COUNT 2.98 10*6/uL (4.50-5.90); RED CELL DISTRI WIDTH 13.9 % (0-14.5); WHITE BLOOD COUNT 18.5 10*3/uL (4.8-10.8)
[2017-05-21 07:00] LABS: ALBUMIN 3.1 gm/dl (3.1-4.5); MAGNESIUM 2.4 mg/dL (1.5-2.1); POTASSIUM 3.9 mmol/L (3.5-5.1)
[2017-05-21 07:17] LABS: INTERNATIONAL NORM RATIO 1.4 (2.0-3.5); PROTHROMBIN TIME 15.1 SECONDS (9.0-12.4)
[2017-05-22] VITALS (7 sets, daily range): BP systolic 109–128; BP diastolic 58–86
[2017-05-22 06:45] LABS: BASO % 0.1 % (0.0-1.0); HEMATOCRIT 28.9 % (42.0-52.0); HEMOGLOBIN 8.8 g/dl (14.0-18.0); IG # 0.1 10*3/uL (0.0-0.1); LYMPH # 0.5 10*3/uL (1.3-4.4); LYMPH % 3.9 % (27.0-41.0); MEAN CELL VOLUME 100.3 fl (80.0-94.0); MEAN CORPUSCULAR HGB 30.6 pg (27.0-31.0); MEAN CORPUSCULAR HGB CONC 30.4 g/dl (33.0-37.0); MONO # 0.9 10*3/uL (0.1-1.0); NEUT # 11.7 10*3/uL (2.3-7.9); NEUT % 88.2 % (47.0-73.0); PLATELET COUNT AUTOMATED 202 10*3/uL (130-400); RED BLOOD COUNT 2.88 10*6/uL (4.50-5.90); RED CELL DISTRI WIDTH 13.8 % (0-14.5); WHITE BLOOD COUNT 13.3 10*3/uL (4.8-10.8)
[2017-05-22 07:10] LABS: MAGNESIUM 2.6 mg/dL (1.5-2.1)
[2017-05-22 07:16] LABS: INTERNATIONAL NORM RATIO 1.4 (2.0-3.5); PROTHROMBIN TIME 15.6 SECONDS (9.0-12.4)
[2017-05-22] MEDS ORDERED: DILTIAZEM CD240 MG PO (14:15)
[2017-05-22] MEDS ORDERED: METOPROLOL TART50 M1 PO (14:15)
[2017-05-22] MEDS ORDERED: PREDNISONE10 MG PO (14:15)
== END 2017-05-22 15:42 | disposition home or self-care (01) | DRG 871 ==
LOC: ED 06:26 → EDHOLD 08:02 → 4E 08:02
PROVIDERS: Emergency Medicine Emergency Medical Services; Family Medicine; Internal Medicine; Internal Medicine Nephrology
DX: A41.89 Other specified sepsis (principal); J18.9 Pneumonia, unspecified organism; N17.0 Acute kidney failure with tubular necrosis; I13.0 Hypertensive heart and chronic kidney disease with heart failure and stage 1 through stage 4 chronic kidney disease, or unspecified chronic kidney disease; I50.32 Chronic diastolic (congestive) heart failure; Z99.81 Dependence on supplemental oxygen; E44.0 Moderate protein-calorie malnutrition; J44.1 Chronic obstructive pulmonary disease with (acute) exacerbation; F33.9 Major depressive disorder, recurrent, unspecified; J44.0 Chronic obstructive pulmonary disease with (acute) lower respiratory infection; I48.2 Chronic atrial fibrillation; F10.10 Alcohol abuse, uncomplicated; F17.200 Nicotine dependence, unspecified, uncomplicated; N18.3 Chronic kidney disease, stage 3 (moderate); K21.9 Gastro-esophageal reflux disease without esophagitis; E66.3 Overweight; E87.6 Hypokalemia; Z88.8 Allergy status to other drugs, medicaments and biological substances; Z79.899 Other long term (current) drug therapy; Z79.51 Long term (current) use of inhaled steroids; Z90.49 Acquired absence of other specified parts of digestive tract; Z89.611 Acquired absence of right leg above knee; Z68.30 Body mass index [BMI] 30.0-30.9, adult

== ENCOUNTER 2017-05-27 17:20 | Inpatient (IN) | payer MEDICARE ==
[~2017-05-27] VITALS: Ht 170.2 cm; Wt 98.2 kg
--- NOTE | ~2017-05-27 | CON ---
[place], [place] REPORT OF CONSULTATION NAME: LO STRAUSS [facility] #: [id number] UNIT #: [id number] ROOM: 503 DOCTOR: MADYSON WILCOX MD BIRTHDATE: [birth year] DOS: 05/28/2017 PULMONARY CONSULTATION, EVALUATION AND MANAGEMENT HISTORY OF PRESENT ILLNESS: This is a 71-year-old white male who has been recently treated in the hospital for bacteremia, urinary tract infection, and acute kidney injury and discharged on 05/22/2017. The patient was brought back to the hospital, readmitted to the hospital 05/27/2017. The patient has been reported symptoms of shortness of breath. Shortness of breath has been noted to gradually increase with increased wheezing also described. The patient was noted symptoms of orthopnea as well. The cough has been noted with some sputum expectoration, but most of the time noted moderate and nonproductive. The patient denies symptoms of chest pain, noted poor historian, unable to give me an accurate history. All history obtained, again, after review of the current medical records, past medical records, my consultation, and the nursing notes in the last few months. The patient has been described as symptoms of shortness of breath as the patient was brought to the hospital by the EMS, ongoing for 3 days. The symptoms have been noted progressive, worsening. REVIEW OF SYSTEMS: Limited for the patient. CONSTITUTIONAL: Complaining fatigue and tiredness. Denies symptoms of fever or chills. EYES: Denies any burning, redness, or tenderness. EARS, NOSE, THROAT: No sore throat, hoarseness, otalgia, postnasal drainage. CARDIOVASCULAR: Denies any anginal pain, edema or pain of the lower extremities. He has been noted history of above-knee amputation of the right lower extremity. GASTROINTESTINAL: Denies dysphagia, nausea, vomiting, diarrhea, abdominal pain, hematemesis, or melena. SKIN: No lesions or rashes. CENTRAL NERVOUS SYSTEM: No dizziness, headache, diplopia, syncopal episodes. Remaining systems were reviewed with the patient and they were noted all negative. PAST MEDICAL HISTORY: The patient was known with history of: 1. Centrilobular emphysema. 2. Gastroesophageal reflux. 3. Essential hypertension. 4. History of peripheral vascular disease. 5. 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 6. History of general anxiety and depression. 7. History of past alcohol use. 8. History of congestive heart failure, whether systolic or diastolic was unknown. 9. History of chronic atrial fibrillation. PAST SURGICAL HISTORY: 1. Above-knee amputation of right lower extremity. 2. Carotid endarterectomy [place], [place] REPORT OF CONSULTATION NAME: LO STRAUSS UNIT #: [id number] ROOM: [facility] DOCTOR: MADYSON WILCOX MD BIRTHDATE: [birth year] 3. Appendectomy. 4. Surgery of the left leg. SOCIAL HISTORY: The patient was noted history of drinking beer in the past. History of tobacco use was noted since teenager, a pack of cigarettes per day until 2016. There was no history of occupation-related pulmonary exposure. FAMILY HISTORY: Noted unknown. MEDICATIONS: Current administered medications noted on admission as use of melatonin, trazodone, Lipitor, Lasix intravenously, Cardizem-CD, metoprolol tartrate, Pradaxa, citalopram, Plavix, amlodipine, hydralazine, Dulera, albuterol sulfate with the nebulizer, IV Solu-Medrol, DuoNeb, vancomycin, Zosyn, and Levaquin. DRUG ALLERGY HISTORY: The patient noted as allergy to the NEURONTIN causing generalized edema or swelling. PHYSICAL EXAMINATION: GENERAL: A 71-year-old white male currently noted awake and alert without any distress. Height of 5 feet 7 inches, weight of 217 pounds, BMI 34. VITAL SIGNS: Normal temperature, respiratory rate 20-18, heart rate 110 to 67, blood pressure 137/94-149/82. Pulse oxygen saturation on 3 liters nasal cannula 94% saturation. HEENT: Shows chronic severe obesity. Neck was supple. Head was atraumatic. Decreased posterior pharyngeal space. CARDIOVASCULAR: S1, S2 audible. LUNGS: The patient was noted with moderate reduction of the breath sounds noted bilaterally with expiratory wheezing. There were no crackles. ABDOMEN: Soft, obese, nontender. EXTREMITIES: Shows no edema of the left lower extremity, above-knee amputation of the right lower extremity noted. CENTRAL NERVOUS SYSTEM: Limited exam, but there were no focal deficits. The patient is able to move all the upper and lower extremities ____ examination cannot be completed. SKIN: Showed no lesions or rashes. MUSCULOSKELETAL: Does not show any obvious deformities. LABORATORY DATA: Lactic acid on 05/27/2017 was normal. PT/PTT 05/27/2017, INR of 1.4 with PTT normal. CMP 05/27/2017, BUN 80, creatinine 2.76 at that time. The magnesium was 2.9. Past BMP of the patient on last admission and discharge, noted BUN of 57 at that time, creatinine of 2.20. The troponin of patient yesterday noted normal. CBC on 05/27/2017, WBC count 20.9, hemoglobin 8.4, hematocrit 26.0, platelet count 218,000, 92% segmented neutrophils. CMP this morning was noted, BUN of 82, creatinine 2.76, glucose 162. PT/PTT repeated again this morning was noted, INR 1.5, PTT 46. CBC this morning, WBC count 14.8, hemoglobin 7.8, hematocrit 23.9, platelet count 174,000. Chest x-ray one view of the patient on 05/27/2017 was personally reviewed, shows small basilar area of atelectasis and/or infiltration would be considered. [place], [place] REPORT OF CONSULTATION [facility]: [id number] UNIT #: [id number] ROOM: 503 DOCTOR: VASYL LUNDBERG MD,[facility] BIRTHDATE: [birth year] IMPRESSION: 1. The patient admitted to the hospital with symptoms of increased shortness of breath related to the acute exacerbation of chronic obstructive pulmonary disease, possibility of basilar atelectasis, rule out pneumonia. 2. History of chronic obesity as well with possibility of obstructive sleep apnea disorder would be considered as well. 3. The patient with history of previous nicotine abuse was known as well. 4. Anemia for the patient was noted without any known visible gastrointestinal bleeding; however, the gastrointestinal bleeding should be excluded. 5. History of atrial fibrillation, currently treated with the medications appropriately. 6. The patient with acute kidney injury superimposed with chronic kidney disease maybe related to the current volume contraction and other etiologies. 7. History of known chronic kidney disease stage 3 as well. 8. Hyperglycemia related to the use of the corticosteroids. PLAN OF TREATMENT: Continuation of the patient's current plan of management for this patient without any changes for this patient. Continue current antibiotic; however, the antibiotic spectrum should be treated for the patient based on progression of illness and all the cultures available. The patient has been also ordered sputum for Gram stain and culture. Repeat chest x-ray will be done, PA lateral view to preferably assess the basilar component for this patient to assess if any persistent infiltration with persistent leukocytosis noted responding to current treatment. Bronchodilator to be continued as well. Other supportive therapy, plan and management and care. Usual treatment. oxygen supplementation, titrate saturation 92% or greater. Thanks for allowing me to participate in the care of this patient. MADYSON FALLON MD CM:CONSTR:REPORT OF CONSULTATION 1145 05/28/17 1340 interface
--- NOTE | ~2017-05-27 | CON ---
[place], [place] REPORT OF CONSULTATION NAME: LO STRAUSS UNIT #: [id number] ROOM: 503 DOCTOR: ALEJANDRO REDDY MD BIRTHDATE: [birth year] DOS: 05/28/2017 REASON FOR CONSULTATION: Acute kidney injury, chronic kidney disease. HISTORY OF PRESENT ILLNESS: The patient is a 71-year-old who has been previously seen by my associate here in the hospital and myself back in 2013. When I saw him in 2013, it was in relation to hyponatremia. It was fairly severe. He had a sodium level of 116. He did have some proteinuria and hematuria, which needed to be evaluated further, but he never followed up in the office at that time for it. When I saw him then, his renal function was normal. His creatinine has now climbed up to 2.76 and it has been a steady climb. He is followed by a trailer tank truck driver, Dr. Matta at [facility]. Apparently, he canceled an appointment that he had scheduled with him in March for unclear reasons. He did have brief serologies completed that I did in May 2014 with a negative serum immunofixation, negative ANCA, negative GBM, negative complements, normal kappa-lambda ratio of free light chains, negative RAEANN, negative hepatitis as well. It was reportedly known that he had some sort of renal artery stenosis perhaps on his last encounter with Dr. Matta. He had positive blood cultures last month when he was seen in the hospital with Staphylococcus haemolyticus. Lasix was held and then he gained a fair amount of volume overload in that period of time. He was at home. I got a call from his home health nurse; I tried calling back, but there was no ability to leave a voicemail as the voicemail was full. His creatinine was 2 last month and as mentioned above, his creatinine is now up to 2.76 and again, it has been a steady climb with no real slowing in sight since March of this past year. In July of last year, his creatinine was only 1.0-1.1. He has been on antibiotics with multiple different antibiotics, also on Lasix. Again, he does appear volume overloaded and it was denied that he was on any NSAIDs at home. REVIEW OF SYSTEMS: Negative except for as per HPI. PAST MEDICAL HISTORY: Positive for past alcohol, CKD with worsening function, COPD, heart failure diastolic in nature, hypertension, GERD, hyperlipidemia, past right lower leg amputation, history of carotid endarterectomy, history of appendectomy. FAMILY HISTORY: No known family history of dialysis dependence or renal failure. SOCIAL HISTORY: He was a former smoker, quit about a year ago of smoking. PHYSICAL EXAMINATION: VITAL SIGNS: Afebrile, heart rates were in the 50s to 1 teens, respiratory rate 18-20, blood pressure 120s to 140s over 90s to 60s, pulse ox 98-94% on 3 liters nasal cannula. GENERAL: He is awake, alert and oriented. He does not appear in any acute distress, but he appears chronically ill and volume overloaded with diffuse bilateral lower extremity edema, obviously worse in his non-amputated leg, but he has some scrotal edema as well and some lower abdominal swelling and flank edema. [place], [place] REPORT OF CONSULTATION NAME: LO STRAUSS UNIT #: [id number] ROOM: [facility] DOCTOR: ALEJANDRO REDDY MD BIRTHDATE: [birth year] NECK: Difficult to assess JVD in his neck, but may have some present. LUNGS: Appear diminished with some rales bilaterally. CARDIOVASCULAR: Rhythm is irregular, but rate is controlled. ABDOMEN: Soft, nontender, no rebound, no guarding. No other CVA tenderness, suprapubic tenderness. LABORATORIES AND DIAGNOSTICS: Recent renal ultrasound from May 21 showed the right kidney of 11.9 cm, left kidney of 12.9 cm, no hydronephrosis, chronic cortical changes, mild thinning noted. ASSESSMENT AND PLAN: Progressive acute kidney injury and progressive chronic kidney disease, now stage 4. Creatinine is up to 2.76 with an estimated GFR of 23. Etiology is not clear. Past serologies were negative, but just about a year ago his renal function was normal. Concerns for possible renal artery stenosis and atheroembolic disease as well as possible vasculitic complications despite negative serologies may be a possibility here. His urine has shown evidence of proteinuria going back to 2013. Most recent protein creatinine ratio has been 1.5 last month. As mentioned before, his immunofixation was negative in 2013, but certainly could be repeated. Although I think the best case may be to transfer him to [facility] so he can be evaluated by his primary trailer tank truck driver as if there is any involvement of renal artery stenosis, we do not have the wherewithal in this hospital to take care of that on an acute setting. He is hypertensive, volume overloaded with edema and I agree with diuresing him cautiously, but again if this induces further worsening of renal failure, I would rather his primary trailer tank truck driver be closely monitoring this. Case was discussed with Dr. Coon, the primary hospitalist in this case. Thank you very much for the kind consultation. ALEJANDRO REDDY MD CM:CONSTR:REPORT OF CONSULTATION 1523 05/29/17 0106 interface
[~2017-05-27 17:20] MED LIST changes: +DILTIAZEM CD240 MG PO; +LOPRESSOR50 M1 PO; +MIRALAX17 GM PO; +PREDNISONE10 MG PO
[2017-05-27 17:45] LABS: HEMOGLOBIN 8.4 g/dl (14.0-18.0); MEAN CELL VOLUME 97.4 fl (80.0-94.0); MEAN CORPUSCULAR HGB 31.5 pg (27.0-31.0); MEAN CORPUSCULAR HGB CONC 32.3 g/dl (33.0-37.0); MEAN PLATELET VOLUME 11.2 fl (9.6-12.3); PLATELET COUNT AUTOMATED 218 10*3/uL (130-400); RED BLOOD COUNT 2.67 10*6/uL (4.50-5.90); RED CELL DISTRI WIDTH 13.6 % (0-14.5); WHITE BLOOD COUNT 20.9 10*3/uL (4.8-10.8)
[2017-05-27 17:58] VITALS: BP 148/88
[2017-05-27 17:58] LABS: C-REACTIVE PROTEIN < 0.29 MG/DL (0-0.3)
[2017-05-27 17:58] LABS: INTERNATIONAL NORM RATIO 1.4 (2.0-3.5); PROTHROMBIN TIME 15.4 SECONDS (9.0-12.4)
[2017-05-27 18:03] LABS: ALBUMIN 3.1 gm/dl (3.1-4.5); ALKALINE PHOSPHATASE 84 U/L (45-117); BILIRUBIN, TOTAL 0.4 mg/dl (0.2-1.0); BUN 80 mg/dl (7-24); CARBON DIOXIDE 27 mmol/L (21-32); CHLORIDE 102 mmol/L (98-107); EST GLOM FILT AFRICAN AMERICAN 28 ml/min; GLUCOSE 140 mg/dL (65-99); MAGNESIUM 2.9 mg/dL (1.5-2.1); POTASSIUM 3.7 mmol/L (3.5-5.1); SGOT/AST 18 IU/L (3-35); SGPT/ALT 31 U/L (12-78); SODIUM 137 mmol/L (136-145); TOTAL PROTEIN 6.7 gm/dL (6.4-8.2)
[2017-05-27 18:06] LABS: TROPONIN I < 0.015 ng/ml (<0.045)
[2017-05-27 18:22] LABS: LYMPHOCYTE # 0.2 10*3/uL (1.3-4.4); MONOCYTE # 1.3 10*3/uL (0.1-1.0); MYELOCYTES 1 % (0-0); NEUTROPHIL # 19.2 10*3/uL (2.3-7.9); NEUTROPHILS 92 % (47-73); TOTAL CELLS COUNTED 100 #CELLS
[2017-05-27 18:23] LABS: BURR CELLS FEW; PLATELET SUFFICIENCY NORMAL (NORMAL)
[2017-05-27 18:26] LABS: OVALOCYTES FEW
[2017-05-27 19:43] VITALS: BP 125/63
[2017-05-27 20:30] VITALS: BP 121/55
[2017-05-27 21:00] VITALS: BP 121/55
[2017-05-28] VITALS: BP 149/82
[2017-05-28 06:13] LABS: ALBUMIN 2.9 gm/dl (3.1-4.5); BILIRUBIN, TOTAL 0.4 mg/dl (0.2-1.0); MAGNESIUM 2.7 mg/dL (1.5-2.1); PHOSPHOROUS 4.5 mg/dL (2.5-4.9); TOTAL PROTEIN 6.1 gm/dL (6.4-8.2)
[2017-05-28 06:15] LABS: HEMATOCRIT 23.9 % (42.0-52.0); HEMOGLOBIN 7.8 g/dl (14.0-18.0); MEAN CELL VOLUME 96.8 fl (80.0-94.0); MEAN CORPUSCULAR HGB 31.6 pg (27.0-31.0); MEAN CORPUSCULAR HGB CONC 32.6 g/dl (33.0-37.0); MEAN PLATELET VOLUME 11.4 fl (9.6-12.3); PLATELET COUNT AUTOMATED 174 10*3/uL (130-400); RED BLOOD COUNT 2.47 10*6/uL (4.50-5.90); RED CELL DISTRI WIDTH 13.5 % (0-14.5); WHITE BLOOD COUNT 14.8 10*3/uL (4.8-10.8)
[2017-05-28 06:31] LABS: INTERNATIONAL NORM RATIO 1.5 (2.0-3.5); PROTHROMBIN TIME 16.4 SECONDS (9.0-12.4)
[2017-05-28 07:11] LABS: MYELOCYTES 1 % (0-0); NEUTROPHIL # 14.7 10*3/uL (2.3-7.9); NEUTROPHILS 99 % (47-73); PLATELET SUFFICIENCY NORMAL (NORMAL); POLYCHROMASIA SLIGHT; TOTAL CELLS COUNTED 100 #CELLS
[2017-05-28 08:00] VITALS: BP 137/94
[2017-05-28 12:00] VITALS: BP 127/66
[2017-05-28 16:00] VITALS: BP 98/48
[2017-05-28] MEDS ORDERED: ATORVASTATIN CA20 M1 PO (17:08)
[2017-05-28] MEDS ORDERED: APRESOLINE25 MG PO (17:08)
[2017-05-28] MEDS ORDERED: ALBUTEROL SULF0.5 M1 NEB (17:08)
[2017-05-28] MEDS ORDERED: AMLODIPINE BESYL5 MG PO (17:08)
[2017-05-28] MEDS ORDERED: PRADAXA150 MG PO (17:08)
[2017-05-28] MEDS ORDERED: CLOPIDOGREL75 MG PO (17:08)
[2017-05-28] MEDS ORDERED: METOPROLOL TART50 M1 PO (17:08)
[2017-05-28] MEDS ORDERED: DUONEB 3 MG/3 ML3 M1 NEB (17:08)
[2017-05-28 17:21] VITALS: BP 112/62
[2017-05-28] MEDS ORDERED: OXYGEN NAS (19:16)
[2017-05-30 15:09] LABS: LEGIONELLA URINARY ANTIGEN Negative (Negative); ORGANISM ID Not indicated. (.); SPECIMEN SOURCE Urine (.); STREPTOCOCCUS PNEUMONIAE AG Negative (Negative)
== END 2017-05-28 19:34 | disposition short-term general hospital (02) | DRG 190 ==
LOC: ED 17:20 → 5E 19:07 → EDHOLD 19:07 → 5E 19:12
PROVIDERS: Emergency Medicine; Family Medicine
DX: J44.0 Chronic obstructive pulmonary disease with (acute) lower respiratory infection (principal); J15.6 Pneumonia due to other Gram-negative bacteria; N17.0 Acute kidney failure with tubular necrosis; I50.33 Acute on chronic diastolic (congestive) heart failure; E44.0 Moderate protein-calorie malnutrition; N18.4 Chronic kidney disease, stage 4 (severe); I48.2 Chronic atrial fibrillation; Z99.81 Dependence on supplemental oxygen; I13.0 Hypertensive heart and chronic kidney disease with heart failure and stage 1 through stage 4 chronic kidney disease, or unspecified chronic kidney disease; E83.41 Hypermagnesemia; F32.9 Major depressive disorder, single episode, unspecified; J44.1 Chronic obstructive pulmonary disease with (acute) exacerbation; K21.9 Gastro-esophageal reflux disease without esophagitis; E78.5 Hyperlipidemia, unspecified; E66.9 Obesity, unspecified; G47.33 Obstructive sleep apnea (adult) (pediatric); T38.0X5A Adverse effect of glucocorticoids and synthetic analogues, initial encounter; D53.9 Nutritional anemia, unspecified; R73.9 Hyperglycemia, unspecified; I73.9 Peripheral vascular disease, unspecified; F41.1 Generalized anxiety disorder; Z68.34 Body mass index [BMI] 34.0-34.9, adult; Z89.611 Acquired absence of right leg above knee; Z90.49 Acquired absence of other specified parts of digestive tract; Z87.81 Personal history of (healed) traumatic fracture; Z87.891 Personal history of nicotine dependence; Z79.02 Long term (current) use of antithrombotics/antiplatelets; Y92.89 Other specified places as the place of occurrence of the external cause; Z79.899 Other long term (current) drug therapy; Z88.6 Allergy status to analgesic agent

== ENCOUNTER → 2017-07-10 | Day surgery (SDC) | payer MEDICARE ==
[~2017-07-10] VITALS: Ht 170.1 cm; Wt 87.1 kg
[~2017-07-10] MED LIST changes: +ALBUTEROL SULF0.5 M1 NEB; +ATORVASTATIN CA20 M1 PO; +CALCIUM500 M1 PO; +CLOPIDOGREL75 MG PO; +COREG6.25 MG PO; +DUONEB 3 MG/3 ML3 M1 NEB; +ELIQUIS2.5 M1 PO; +ELIQUIS5 M1 PO; +LASIX80 MG PO
--- NOTE | ~2017-07-10 | O ---
[place], [place] OPERATIVE NOTE NAME: LO STRAUSS [facility] #: [id number] UNIT #: [id number] ROOM: DOCTOR: ALISHA MOORE MD BIRTHDATE: [birth year] DOS: 07/10/2017 PREOPERATIVE DIAGNOSIS: Cataract, left eye. POSTOPERATIVE DIAGNOSIS: Cataract, left eye. OPERATION: Extracapsular cataract extraction by phacoemulsification with posterior chamber intraocular lens implantation, left eye. ANESTHESIA: Monitored standby. OPERATIVE FINDINGS AND PROCEDURE: 2% Xylocaine topical anesthetic gel was applied to the eye in the preop area. The patient was taken to the operating room and prepped and draped in the standard fashion for sterile intraocular surgery. A time out procedure was performed verifying correct patient, correct site and corrects lens with Will Moore M.D. The operating microscope was swung into position and the lid speculum was inserted. Using a Joana paracentesis blade, a paracentesis was made through clear cornea. Viscoelastic was used to fill the anterior chamber. Using a metal keratome a 2.4 mm self-sealing clear corneal cataract incision was made temporally at the limbus. Using a pre-bent 25 gauge cystotome needle, a standard continuous curvilinear capsulorrhexis was performed. The anterior capsule was removed with forceps. The lens nucleus was hydrodissected and phacoemulsified in the posterior chamber. Cortical material was removed with the irrigation aspiration hand piece and the posterior capsule was then polished with a curet under irrigation. The posterior chamber and capsular bag were filled with viscoelastic. A posterior chamber intraocular lens manufactured by: [employer], Model #[id number], and 21.0 diopters in strength were then inserted into the posterior chamber and within the capsular bag using the lens cartridge and injector system. Viscoelastic was removed using the irrigation aspiration handpiece. The anterior chamber was filled with balanced salt solution through the paracentesis. Both the paracentesis site and cataract incisions were hydrated with BSS and verified to be water-tight and self-sealing. Cefuroxime 1 mg/1 mL was injected into the anterior chamber through the paracentesis site. The incision checked to be water-tight using a Weck-Mercy sponge. The integrity of the cataract wound and ocular tension were checked. Lid speculum and drapes were removed. The patient was transferred from the operating room to the recovery room in satisfactory condition. [place], [place] OPERATIVE NOTE NAME: LO STRAUSS UNIT #: [id number] ROOM: DOCTOR: ALISHA MOORE MD BIRTHDATE: [birth year] ALISHA MOORE MD CM:OPRECORD:OPERATIVE NOTE [id number] ALISHA MOORE MD 07/10/17 1551 interface
[2017-07-10 12:50] VITALS: BP 155/91
[2017-07-10 14:41] VITALS: BP 168/104
[2017-07-10 14:55] VITALS: BP 145/107
[2017-07-10 15:11] VITALS: BP 153/88
== END | disposition home or self-care (01) ==
LOC: SDC 07-05 10:15
DX: H26.9 Unspecified cataract (principal); J44.9 Chronic obstructive pulmonary disease, unspecified; K21.9 Gastro-esophageal reflux disease without esophagitis; I11.0 Hypertensive heart disease with heart failure; I50.9 Heart failure, unspecified; I73.9 Peripheral vascular disease, unspecified; H40.9 Unspecified glaucoma; I48.91 Unspecified atrial fibrillation; L40.9 Psoriasis, unspecified; Z90.49 Acquired absence of other specified parts of digestive tract; Z98.890 Other specified postprocedural states; Z87.891 Personal history of nicotine dependence

== ENCOUNTER 2017-09-01 16:49 | Emergency (ER) | payer MEDICARE ==
[~2017-09-01] VITALS: Ht 170.1 cm; Wt 72.6 kg
[2017-09-01 17:40] LABS: BASO % 0.1 % (0.0-1.0); EOS # 0.3 10*3/uL (0.0-0.4); EOS % 4.2 % (1.0-4.0); HEMATOCRIT 29.5 % (42.0-52.0); HEMOGLOBIN 10.1 g/dl (14.0-18.0); LYMPH # 0.7 10*3/uL (1.3-4.4); LYMPH % 8.6 % (27.0-41.0); MEAN CELL VOLUME 105.7 fl (80.0-94.0); MEAN CORPUSCULAR HGB 36.2 pg (27.0-31.0); MEAN CORPUSCULAR HGB CONC 34.2 g/dl (33.0-37.0); MEAN PLATELET VOLUME 9.4 fl (9.6-12.3); MONO # 0.7 10*3/uL (0.1-1.0); MONO % 9.7 % (3.0-9.0); NEUT # 5.8 10*3/uL (2.3-7.9); PLATELET COUNT AUTOMATED 176 10*3/uL (130-400); RED BLOOD COUNT 2.79 10*6/uL (4.50-5.90); RED CELL DISTRI WIDTH 13.8 % (0-14.5); WHITE BLOOD COUNT 7.6 10*3/uL (4.8-10.8)
[2017-09-01 17:56] LABS: ALBUMIN 3.3 gm/dl (3.1-4.5); ALKALINE PHOSPHATASE 82 U/L (45-117); BUN 21 mg/dl (7-24); CHLORIDE 86 mmol/L (98-107); CREATININE 1.43 mg/dL (0.70-1.30); LIPASE 179 U/L (73-393); POTASSIUM 3.4 mmol/L (3.5-5.1); SGOT/AST 21 IU/L (3-35); SGPT/ALT 18 U/L (12-78); SODIUM 129 mmol/L (136-145); TOTAL PROTEIN 7.1 gm/dL (6.4-8.2)
[2017-09-01 17:59] LABS: TROPONIN I < 0.015 ng/ml (<0.045)
[2017-09-01 18:17] VITALS: BP 148/78
[2017-09-01] MEDS ORDERED: AMOXICILLIN500 M2 PO (18:42)
[2017-09-01] MEDS ORDERED: VIBRAMYCIN100 MG PO (19:07)
== END 2017-09-01 19:17 | disposition home or self-care (01) ==
LOC: ED 16:49
PROVIDERS: Registered Nurse
DX: J44.1 Chronic obstructive pulmonary disease with (acute) exacerbation (principal); E87.6 Hypokalemia; E87.1 Hypo-osmolality and hyponatremia; Z88.8 Allergy status to other drugs, medicaments and biological substances; Z79.899 Other long term (current) drug therapy; Z87.891 Personal history of nicotine dependence

== ENCOUNTER 2017-09-08 14:22 | Inpatient (IN) | payer MEDICARE ==
[~2017-09-08] VITALS: Ht 170.1 cm; Wt 88.7 kg
--- NOTE | ~2017-09-08 | PROC NOTE ---
[place], [place] PROCEDURE NOTE NAME: LO STRAUSS UNIT #: [id number] ROOM: 415 DOCTOR: CRISSY JUÁREZ BIRTHDATE: [birth year] DOS: 09/09/2017 MODIFIED BARIUM SWALLOW LOCATION: [facility], room 415, bed 2. RADIOLOGIST: Dr. Diop. ORDERING PHYSICIAN: Dr. Dias. BACKGROUND INFORMATION: The patient us a 71-year-old male who was seen for a modified barium swallow. This test was ordered to rule out aspiration due to recurrent pneumonia. Further medical history includes sepsis, hyponatremia, HTN, COPD, GERD, CHF, AFib, right AKA and hiatal hernia. This patient denies any difficulty with chewing or swallowing. He currently receives a regular diet and thin liquids. For today's assessment, he was alert and able to follow commands. He was receiving oxygen via nasal cannula. Oral peripheral examination revealed presence of a few natural teeth only. Lingual, labial and buccal skills were within normal limits in terms of strength, range of motion and coordination. Volitional cough and swallow were adequate. METHODS AND MATERIALS USED FOR THE EXAM: The patient was positioned in the lateral plane and examination was viewed under fluoroscopy. The patient was presented with a variety of consistencies to assess swallowing skills including applesauce mixed with barium presented in half teaspoon amounts, barium-coated cookie taken in bite size piece. A sandwich was attempted; however, the patient refused this consistency. He was also administered thin liquid barium taken by cup and straw. ORAL PHASE: Unremarkable. PHARYNGEAL PHASE: Unremarkable. ESOPHAGEAL PHASE: This phase of the swallow was not formally assessed during this examination. IMPRESSIONS AND RECOMMENDATIONS: Based upon assessment results, this 71-year-old patient presents with swallowing skills that are within normal limits. Recommend he remain on present diet. No followup therapy is warranted. Results and recommendations were shared with the patient and his nurse and they verbalized understanding. Thank you very much for this referral. Should you have any questions regarding this patient, please contact the speech pathologist at [phone]. [place], [place] PROCEDURE NOTE NAME: LO STRAUSS UNIT #: [id number] ROOM: 415 DOCTOR: CRISSY JUÁREZ BIRTHDATE: [birth year] CRISSY JUÁREZ CM:DAVID:PROCEDURE NOTE [phone] CRISSY JUÁREZ
[~2017-09-08 14:22] MED LIST changes: +AMOXICILLIN500 M2 PO; +BRIMONIDINE TAR10 ML OD; +COSOPT 2%-0.5%10 ML OD; +LATANOPROST2.5 ML OD; +VIBRAMYCIN100 MG PO
[2017-09-08 14:35] VITALS: BP 187/73
[2017-09-08 15:02] LABS: BASO % 0.3 % (0.0-1.0); EOS # 0.3 10*3/uL (0.0-0.4); EOS % 3.5 % (1.0-4.0); HEMATOCRIT 25.4 % (42.0-52.0); HEMOGLOBIN 8.9 g/dl (14.0-18.0); LYMPH % 13.6 % (27.0-41.0); MEAN CELL VOLUME 102.4 fl (80.0-94.0); MEAN CORPUSCULAR HGB 35.9 pg (27.0-31.0); MEAN PLATELET VOLUME 9.4 fl (9.6-12.3); MONO # 0.6 10*3/uL (0.1-1.0); MONO % 7.9 % (3.0-9.0); NEUT # 5.7 10*3/uL (2.3-7.9); NEUT % 74.3 % (47.0-73.0); PLATELET COUNT AUTOMATED 161 10*3/uL (130-400); RED BLOOD COUNT 2.48 10*6/uL (4.50-5.90); RED CELL DISTRI WIDTH 13.2 % (0-14.5); WHITE BLOOD COUNT 7.6 10*3/uL (4.8-10.8)
[2017-09-08 15:12] LABS: ACT PARTIAL THROMBO TIME 29.7 SECONDS (20.8-31.5); INTERNATIONAL NORM RATIO 1.1 (2.0-3.5)
[2017-09-08 15:21] LABS: ALBUMIN 3.1 gm/dl (3.1-4.5); ALKALINE PHOSPHATASE 81 U/L (45-117); BUN 16 mg/dl (7-24); CHLORIDE 80 mmol/L (98-107); CREATININE 1.36 mg/dL (0.70-1.30); POTASSIUM 3.7 mmol/L (3.5-5.1); SGOT/AST 22 IU/L (3-35); SGPT/ALT 19 U/L (12-78); SODIUM 126 mmol/L (136-145); TROPONIN I 0.018 ng/ml (<0.045)
--- NOTE | 2017-09-08 15:30 | NUR ---
PT LYING IN BED. NO DISTRESS NOTED. SPO2 100% ON 4L NC. WILL CONTINUE TO MONITOR.
[2017-09-08 15:43] LABS: BILIRUBIN NEGATIVE (NEGATIVE); BLOOD TRACE-INTACT (NEGATIVE); CLARITY CLEAR (CLEAR); COLOR YELLOW (YELLOW); GLUCOSE NEGATIVE (NEGATIVE); KETONE NEGATIVE (NEGATIVE); LEUKO ESTERASE NEGATIVE (NEGATIVE); NITRITE NEGATIVE (NEGATIVE); SPECIFIC GRAVITY 1.015 (1.005-1.030); UROBILINOGEN 0.2 E.U./dl (0.2-1.0)
[2017-09-08 15:46] VITALS: BP 148/86
[2017-09-08 15:58] LABS: EPITHELIAL CELLS 0-2; WBC 0-2 wbc/hpf (0-5)
--- NOTE | 2017-09-08 16:00 | NUR ---
PT HAS WOUNDS TO BILATERAL ARMS THAT ARE WRAPPED WITH BANDAGES. PT HAS WOUNDS TO THE THE CHEST AND BACK. PT STATES "I HAVE THESE BECAUSE I TAKE BLOOD THINNERS AND SCRATCH MYSELF". RN RE DRESSED THE WOUND TO THE LEFT HAND DURING ASSESSMENT.
[2017-09-08 17:30] VITALS: BP 156/90
[2017-09-08 18:15] VITALS: BP 156/90
--- NOTE | 2017-09-08 18:15 | NUR ---
NO ACTIVE BLEEDING TO PATIENT WOUNDS AT TIME OF ADMISSION. INPATIENT RN INFORMED OF PT WOUNDS.
--- NOTE | 2017-09-08 18:15 | NUR ---
A 71, admitted to 4E, under the services of ROWENA Mondragon DO with a diagnosis of HYPONATREMIA, SEPSIS, PNEUMONIA. Chief complaint is SOB. Patient arrived via ambulance from ER. Monitor applied. Initial assessment completed. Vital signs taken and recorded. ROWENA MONDRAGON DO notified of admission to the unit. Orders received. See assessment for past medical history, medications and allergies. Patient and/or family oriented to unit. visitation policy reviewed. Clothing/patient valuable form completed. ELOISE ARMAS
[2017-09-08] MEDS ORDERED: K-TAB20 MEQ PO (19:41)
[2017-09-08] MEDS ORDERED: FEOSOL325 MG PO (19:42)
[2017-09-08] MEDS ORDERED: NATURE'S BLEND F1 MG PO (19:43)
[2017-09-08] MEDS ORDERED: VITAMIN B121000 MC1 PO (19:43)
[2017-09-08] MEDS ORDERED: ATROPINE SULFATE2 M2 OD (19:46)
[2017-09-08] MEDS ORDERED: TOBRADEX 0.3-03.5 GM OPH (19:47)
[2017-09-08] MEDS ORDERED: PREDNISOLONE 13.5 M1 OP (19:48)
[2017-09-08] MEDS ORDERED: MELATONIN3 MG PO (19:49)
--- NOTE | 2017-09-08 19:52 | NUR ---
DR. CALDERON NOTIFIED PATIENT'S MEDS WERE VERIFIED WITH HIS AND MED REQ IS UP TO DATE.
[2017-09-08 20:00] VITALS: BP 143/64
--- NOTE | 2017-09-08 20:33 | NUR ---
PATIENT RESTING IN BED. C/O NOTHING AT THIS TIME. ABX INFUSING WITHOUT DIFFICULTY. WILL MONITOR. BED IN LOWEST POSITION, CALL LIGHT IN REACH
--- NOTE | 2017-09-08 23:35 | NUR ---
DR CALDERON AWARE OF PATIENT'S WOUNDS AND REDDENED AREAS ON BACK AND LEGS. NO ORDERS
[2017-09-09] VITALS: BP 125/82
--- NOTE | 2017-09-09 04:13 | NUR ---
PATIENT RESTING IN BED WITH EYES CLOSED. NO S/S OF DISTRESS. RESPS EASY AND REGULAR. BED IN LOWEST POSITION, CALL LIGHT IN REACH
--- NOTE | 2017-09-09 04:26 | NUR ---
24 HR chart check completed.
[2017-09-09 06:48] LABS: HEMATOCRIT 25.9 % (42.0-52.0); HEMOGLOBIN 8.8 g/dl (14.0-18.0); LYMPH # 0.4 10*3/uL (1.3-4.4); LYMPH % 11.2 % (27.0-41.0); MEAN CELL VOLUME 104.4 fl (80.0-94.0); MEAN CORPUSCULAR HGB 35.5 pg (27.0-31.0); MEAN PLATELET VOLUME 10.1 fl (9.6-12.3); MONO # 0.1 10*3/uL (0.1-1.0); MONO % 1.5 % (3.0-9.0); NEUT # 3.4 10*3/uL (2.3-7.9); NEUT % 86.8 % (47.0-73.0); PLATELET COUNT AUTOMATED 167 10*3/uL (130-400); RED BLOOD COUNT 2.48 10*6/uL (4.50-5.90); WHITE BLOOD COUNT 3.9 10*3/uL (4.8-10.8)
[2017-09-09 07:29] LABS: ACT PARTIAL THROMBO TIME 28.7 SECONDS (20.8-31.5); CHLORIDE 89 mmol/L (98-107); INTERNATIONAL NORM RATIO 1.2 (2.0-3.5); SODIUM 132 mmol/L (136-145)
[2017-09-09 07:40] LABS: ALBUMIN 3.1 gm/dl (3.1-4.5); ALKALINE PHOSPHATASE 74 U/L (45-117); BUN 17 mg/dl (7-24); CREATININE 1.41 mg/dL (0.70-1.30); PHOSPHOROUS 2.9 mg/dL (2.5-4.9); SGOT/AST 24 IU/L (3-35); SGPT/ALT 17 U/L (12-78); TOTAL PROTEIN 6.8 gm/dL (6.4-8.2)
[2017-09-09 08:00] VITALS: BP 151/74
--- NOTE | 2017-09-09 09:00 | NUR ---
Vehicle Calibration Engineer in to talk to patient. Patient states lives at home with . There are no steps in the home. Physician: agustin [facility] Home health services: [facility], patient thinks Patient's level of ADLs: MODERATE ASSIST Patient has working utilities: all working DME: walker, home oxygen, protable tank Follow-up physician's appointment after d/c: will be made by hospitalist nurse director upon discharge Does patient want to access PORTAL?: no Discharge plan discussed with patient, patient lives at home with , states he has home oxygen and portable tanks, doesn't know name of company, patient also stated he has VNA 3 days a week at home and thinks the company is [employer], patient wanted someone to talk with his to make sure all of this information was correct, nurse discharge planner or forensic social worker will contact patients . PANCHO ARIAS
--- NOTE | 2017-09-09 11:55 | NUR ---
LUIS ARMANDO SPOKE WITH PT AND . PT WAS HAVING PT AT HOME AND NURSE WOULD STOP TO CHECK ON PT WITH WITH [facility]. LUIS ARMANDO WILL ASK FOR A RESUME ORDER.
[2017-09-09 12:00] VITALS: BP 120/75
--- NOTE | 2017-09-09 12:01 | NUR ---
LUIS ARMANDO NOTIFIED HOSPITALIST OFFICE - ALEXYS THAT PT WILL NEED A RESUME HOME HEALTH ORDER UPON DISCHARGE DUE TO HAVING PHYSICAL THERAPY PRIOR TO HOSPITALIZATION.
--- NOTE | 2017-09-09 12:04 | NUR ---
LO STRAUSS [id number] Please refer to the physician's history and physical for past medical history, comorbid conditions, and allergies. Diagnosis: HYPONATREMIA SEPSIS PNEUMONIA Tommy Score: 15,AT RISK WOUND DESCRIPTIONS: Location of the wound: left index finger Type of wound: skin tear Thickness: Partial Size: 0.5cm x 1.0cm x 0.1cm Tunneling: none Undermining: none Sinus Tract: none Presence of Exudate: Serosanguineous Amount: Light Color: Red Odor: None Periwound Skin Appearance: Normal Wound edges: approximated Pain (associated with wound): none at time of assessment How does patient state this happened? pt stated he fell Surface the patient is resting on: Isoflex Location of the wound: right eyebrow Type of wound: traumatic Thickness: Partial Size: 0.3cm x 0.5cm x <0.1cm Tunneling: none Undermining: none Sinus Tract: none Presence of Exudate: Serosanguineous Amount: Light Color: Red Odor: None Periwound Skin Appearance: Normal Wound edges: approximated Pain (associated with wound): none at time of assessment How does patient state this happened? pt stated he fell Patient has several areas located to bilateral arms and entire chest patient states it it very itchy and he keeps scratching and making some of the areas bleed. This nurse spoke with Dr. Dias and she stated that will we treat this rash even though he is already following with dermatology. SKIN PREVENTION RECOMMENDATION: 1. Pressure redistribution support surface as appropriate 2. Elevate heels 3. Remove boots/TEDS every shift and reapply 4. Head of bed 30 degrees as tolerated 5. Assess nutrition and hydration 6. Manage moisture 7. Avoid the use of containment devices while in bed 8. Use absorptive products on surfaces limit layers of linens on bed 9. Turn and reposition every 1-2 hours in bed and every 1 hour in chair as tolerated 10. Weight shifts every 15 minutes while up in chair 11. Offloading with pillows or device to keep heels elevated off bed 12. Monitor skin at least every shift 13. Inspect under medical devices twice a day WOUND TREATMENT RECOMMENDATIONS: Cleanse left index finger with nss and apply sureprep to surrounding wound then apply hydrogel to wound bed and cover with bandaid. Cleanse right eyebrow with nss and apply sureprep to surrounding wound then apply hydrogel to wound bed and cover with bandaid.
[2017-09-09] MEDS ORDERED: ECONOPRED PLUS10 M1 OPH (12:44)
[2017-09-09] MEDS ORDERED: OCUFLOX 0.3% 5 M5 ML OPH (12:50)
[2017-09-09] MEDS ORDERED: ACULAR 5 ML5 M1 OPH (12:52)
[2017-09-09] MEDS ORDERED: BRIMONIDINE TART5 ML OPH (13:43)
[2017-09-09] MEDS ORDERED: DORZOLAMIDE HCL10 ML OP (13:45)
--- NOTE | 2017-09-09 14:07 | NUR ---
PHYSICAL THERAPY PAtient anjum refuses PT services at this time. Thank you for this referral. Sulema Greenwood,PT
--- NOTE | 2017-09-09 14:43 | NUR ---
SPEECH PATHOLOGY MBS completed as per orders. This was ordered to r/o aspiration due to recurrent pneumonia. Patient was alert and cooperative and challenged with puree, solid and thin liquid consistencies. Oral and pharyngeal swallowing skills were WNL with all consistencies given. Recommend he remain on present diet. No follow up therapy is warranted. Results and palmira. were shared with patient and his nurse and they verbalized understanding. Dictated report to follow. Thank you for this referral. CRISSY JUÁREZ MS [facility]-INSTALLATION AND REPAIR TECHNICIAN
[2017-09-09 16:00] VITALS: BP 150/63
[2017-09-09 20:00] VITALS: BP 139/83
[2017-09-10] VITALS (8 sets, daily range): BP systolic 90–139; BP diastolic 51–83
--- NOTE | 2017-09-10 01:19 | NUR ---
24 HR chart check completed.
--- NOTE | 2017-09-10 03:59 | NUR ---
PATIENT RESTING IN BED WITH NO S/S OF DISTRESS. RESPS EASY AND REGULAR. BED IN LOWEST POSITION, CALL LIGHT IN REACH
[2017-09-10 06:41] LABS: BASO % 0.1 % (0.0-1.0); HEMATOCRIT 24.4 % (42.0-52.0); HEMOGLOBIN 8.1 g/dl (14.0-18.0); LYMPH # 0.7 10*3/uL (1.3-4.4); LYMPH % 6.6 % (27.0-41.0); MEAN CELL VOLUME 106.6 fl (80.0-94.0); MEAN CORPUSCULAR HGB 35.4 pg (27.0-31.0); MEAN CORPUSCULAR HGB CONC 33.2 g/dl (33.0-37.0); MEAN PLATELET VOLUME 10.3 fl (9.6-12.3); MONO # 0.7 10*3/uL (0.1-1.0); MONO % 6.8 % (3.0-9.0); NEUT # 9.4 10*3/uL (2.3-7.9); NEUT % 85.9 % (47.0-73.0); PLATELET COUNT AUTOMATED 158 10*3/uL (130-400); RED BLOOD COUNT 2.29 10*6/uL (4.50-5.90); RED CELL DISTRI WIDTH 13.2 % (0-14.5); WHITE BLOOD COUNT 10.9 10*3/uL (4.8-10.8)
[2017-09-10 07:11] LABS: ALBUMIN 3.1 gm/dl (3.1-4.5); CREATININE 1.74 mg/dL (0.70-1.30); PHOSPHOROUS 2.4 mg/dL (2.5-4.9); POTASSIUM 3.9 mmol/L (3.5-5.1)
[2017-09-10 07:13] LABS: TOTAL PROTEIN 6.2 gm/dL (6.4-8.2)
--- NOTE | 2017-09-10 07:40 | NUR ---
AT 0653 PT'S HR WAS IN 140S..SATX HELD AT THIS TIME..NURSING STAFF MADE AWARE
--- NOTE | 2017-09-10 09:00 | NUR ---
case management visits with patient, patient states he will be going home and have [facility], funeral planner will notify [facility] when patient is medically stable for discharge
--- NOTE | 2017-09-10 09:02 | NUR ---
PT IS ALERT AND ORIENTED X3 BP 130/77 PULSE 133 SPO2 100 % ON RA IRREGULAR HEARTBEAT DUE TO ATRIAL FIB NO EDEMA PRESENT ACTIVE PERISTALISIS IN ALL 4 QUADS. NO PAIN EXPRESSED AT THIS TIME
--- NOTE | 2017-09-10 09:30 | NUR ---
DR. MCELROY NOTIFIED OF CONSULT, PER DR. FERRARA.
--- NOTE | 2017-09-10 10:09 | NUR ---
PT IS RESTING QUIETLY IN BED. BED ALARM SET AND CALL LIGHT WITHIN REACH
--- NOTE | 2017-09-10 10:15 | NUR ---
STARTING CARDIZEM DRIP ORDERED AT 5MG/HR OR 5ML/HR FOLLOWING 10MG BOLUS. HR CURRENTLY 130'S/AFIB/IRREGULAR. CARDIZEM IS INFUSING VIA RIGHT ANTECUBITAL HEPLOCK, WHICH IS ASYMPTOMATIC.
--- NOTE | 2017-09-10 10:40 | NUR ---
MULTIPLE ATTEMPTS BY MULTIPLE RN'S UNSUCCESSFUL WITH STARTING SECOND IV SITE FOR CARDIZEM INFUSION; PATIENT ALSO ORDERED IV AZITHROMYCIN, BUT THIS MED IS COMPATABLE WITH CARDIZEM, SO CARDIZEM DRIP WILL NOT NEED INTERRUPTION DURING ANTIBIOTIC INFUSIONS. HR CURRENTLY 120'S -130'S/AFIB/IRREGULAR. PREMETHRIN CREAM APPLIED TO BODY, PATIENT INFORMED THAT THIS MUST BE WASHED OFF IN 8-14 HOURS FROM NOW. IS AT BEDSIDE.
--- NOTE | 2017-09-10 11:03 | NUR ---
HR CURRENTLY 99-100 AFIB/IRREGULAR ON CARDIZEM DRIP AT 5ML/HR.
--- NOTE | 2017-09-10 12:09 | NUR ---
Attempted Physical therapy evaluation three times this am and patient was either with nursing or physicians each time. Will attempt PT evaluation again. Maria Bagley, PT
--- NOTE | 2017-09-10 12:27 | NUR ---
Physial Therapy evalution completed. Patient partially agreeable to participating in assessment. Patient denied pain. Patient resting in bed with left heel protector donned. Patient is supervision with bed mobility and sitting EOB with use of bedrail. Patient has L hip, knee, ankle strength 4-/5 within available ROM; AROM B LE's is WFL. 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 Patient is declines to perform bed transfer to/from bedside commode or wheelchair. Patient lives with his and has all functional living arrangements on the first floor. Patient has a ramp to enter the front of his home including 2 hand rails. Patient is wheelchair bound at this time but was ambulating with a walker with home health physical therapy just prior to his hospitalization. Recommending patient return home with home health PT. Low complexity level evaluation completed. Thank you for this referral, Maria Bagley, Pt
--- NOTE | 2017-09-10 12:49 | NUR ---
CARDIZEM DRIP CONTINUING AT 5ML/HR, HR REMAINS 90'S -100'S ON WAREHOUSE LOGISTICS MANAGER.
--- NOTE | 2017-09-10 13:10 | NUR ---
HR UP TO 110'S/120'S AFIB/IRREGULAR WITHOUT ACTIVITY. INCREASED RATE OF CARDIZEM DRIP TO 10ML/HR PER TITRATE ORDER.
--- NOTE | 2017-09-10 18:47 | NUR ---
HR 60'S AND IRREGULAR/AFIB WITH CARDIZEM DRIP INFUSING AT 10ML/HR. REDUCED RATE TO 5ML/HR PER TITRATE ORDER, HR NOW 60'S -70'S. SEE VS'S FLOW FOR Q2HR BLOOD PRESSURES.
--- NOTE | 2017-09-10 18:59 | NUR ---
DUY MCELROY RE: HR 60'S -70'S/AFIB ON CARDIZEM AT 5MG/HR.
--- NOTE | 2017-09-10 19:10 | NUR ---
DR. MCELROY NOTIFIED OF CURRENT HEART RATE; OBTAINED ORDER TO STOP CARDIZEM DRIP AND CALL IF HR GOES >100/MINUTE. CARDIZEM DRIP STOPPED ORDERED.
[2017-09-11] VITALS (9 sets, daily range): BP systolic 125–146; BP diastolic 55–98
--- NOTE | 2017-09-11 01:13 | NUR ---
DR. GASTON CONTACTED IN REGARDS TO PT. CONCERN OF HAVING "MUCUS STUCK IN THROAT" NO NEW ORDERS AT THIS TIME. ADVISED ME TO CONTACTED RESPIRATORY.
--- NOTE | 2017-09-11 01:55 | NUR ---
PRN RESTORIL GIVEN PER PT. REQUEST FOR INSOMNIA, WILL MONITOR EFFECT.
--- NOTE | 2017-09-11 02:30 | NUR ---
PRN RESTORIL SEEMS EFFECTIVE. PT IS SLEEPING COMFORTABLY WITH RESPERS EASY AND REGULAR, NO DISTRESS NOTED.
--- NOTE | 2017-09-11 04:52 | NUR ---
DR. GASTON CONTACTED IN REGARDS TO PT. HR SITTING IN THE 120'S-130'S, WILL CONTACT CARDIOLOGY.
--- NOTE | 2017-09-11 04:54 | NUR ---
ANSWERING SERVICE CONTACTED, AWAITING CALL BACK.
--- NOTE | 2017-09-11 05:57 | NUR ---
DR. MCELROY RETURNED CALL, SEE NEW ORDERS.
[2017-09-11 06:30] LABS: HEMATOCRIT 25.2 % (42.0-52.0); HEMOGLOBIN 8.3 g/dl (14.0-18.0); MEAN CELL VOLUME 108.2 fl (80.0-94.0); MEAN CORPUSCULAR HGB 35.6 pg (27.0-31.0); MEAN CORPUSCULAR HGB CONC 32.9 g/dl (33.0-37.0); MEAN PLATELET VOLUME 10.1 fl (9.6-12.3); PLATELET COUNT AUTOMATED 172 10*3/uL (130-400); RED BLOOD COUNT 2.33 10*6/uL (4.50-5.90); RED CELL DISTRI WIDTH 13.2 % (0-14.5); WHITE BLOOD COUNT 11.2 10*3/uL (4.8-10.8)
[2017-09-11 06:58] LABS: TOTAL CELLS COUNTED 100 #CELLS
[2017-09-11 06:59] LABS: PLATELET SUFFICIENCY NORMAL (NORMAL); POLYCHROMASIA SLIGHT
[2017-09-11 07:05] LABS: ALBUMIN 3.1 gm/dl (3.1-4.5); CREATININE 2.16 mg/dL (0.70-1.30); PHOSPHOROUS 2.3 mg/dL (2.5-4.9); POTASSIUM 4.1 mmol/L (3.5-5.1); TOTAL PROTEIN 6.3 gm/dL (6.4-8.2)
--- NOTE | 2017-09-11 08:02 | NUR ---
PATIENT VERY IRRITATED AND YELLING AT STUDENTS, BP ELEVATED AT 146/98 BUT PT HAD RECENTLY HAD RESPIRATORY TREATMENT, BP RECHECKED AT 0820 AND WAS 146/88 MANUALLY, STILL VERY IRRITATED, SPENT TIME TRYING TO HELP HIM WITH HIS BREAKFAST THEN LEFT HIM RELAX A LITTLE EDIN RODRIGUEZ
--- NOTE | 2017-09-11 08:06 | NUR ---
DR MCELROY CALLED AND ORDERED CARDIZEM DRIP 10 BOLUS / 5MG/HR. ORDER WAS REPAETED BACK TO DR MCELROY AND PUT IN COMPUTER. WILL REASSSESS PATIENT PER POLICY FOR EFFECTIVENESS OF MEDICATION
--- NOTE | 2017-09-11 08:27 | NUR ---
IV CARDIZEM DRIP STARTED AT 5MG/HR (5ML/HR) AFTER 10MG IV BOLUS ORDERED FOR HR 130'S. PATIENT EXERCISED WITH PHYSICAL THERAPIST, STOOD UP WITH A WALKER AND PIVOTED TO CHAIR, NOW SITTING ON EDGE OF BED FOR BREAKFAST. HE IS SLIGHTLY SHORT OF BREATH WITH ACTIVITY, POX 94% ROOM AIR. HR CURRENTLY REMAINS 130'S/AFIB/IRREGULAR.
--- NOTE | 2017-09-11 09:23 | NUR ---
IV CARDIZEM INCREASED TO 10 MG/HR FOR HR OF 148. 10 MG BOLUS WAS GIVEN AAS ORDERED. PATIENT SITTING ON SIDE OF BED SLIGHTLY SHORT OF BREATH POX 89-90 2 L O2 WAS PLACED ON PATIENT VIA NASAL CANULA. WILL REASSESS PATIENT.
--- NOTE | 2017-09-11 09:32 | NUR ---
PHYSICAL THERAPY Patient was supine in bed upon therapist arrival for am therapy visit and did not want to attempt any therapy at first. Therapist and patient have worked together in the home health arena prior and after a little encouragement, patient agreed to and performed several sit to stand transfers with use of std walker, CGA x 1, and able to complete SPT to bedside arm chair. Patient is R side AKA and required v/c for improved pivot technique. Patient returned to EOB sit following 3 short "hopping" steps after pivot, CGA x 1 and remained EOB with tray table, call light and telphone as breakfast tray arrived. Will continue per POC as tolerated to increase standing tolerance and improve mobility. Enrrique Bourne, CERTIFIED REHABILITATION COUNSELOR
--- NOTE | 2017-09-11 10:09 | NUR ---
DR IBRAHIM IS IN WITH PATIENT. WAITING ON CARDIOLOGY TO COME AND SEE PATIENT
--- NOTE | 2017-09-11 10:10 | NUR ---
MEDICATED PATIENT WITH NORCO FOR EYE PAIN WILL REASSESS FOR EFFECTIVENESS OF MEDICATION
--- NOTE | 2017-09-11 10:32 | NUR ---
PT STILL IRRITATED. PT COMPLAINED OF LEFT EYE PAIN. NURSE NOTIFIED AND MEDICATED FOR PAIN. ALFA MOORE [facility]
--- NOTE | 2017-09-11 12:19 | NUR ---
PT STILL IRRITATED AND NON COMPLIANT. SITTING AT BEDSIDE STATED SHE WAS ORDERING HIS LUNCH. [facility]
--- NOTE | 2017-09-11 13:41 | NUR ---
SW SPOKE WITH PT ABOUT DISCHARGE PLANS. PT WANTS TO RETURN HOME WITH [facility].
--- NOTE | 2017-09-11 13:43 | NUR ---
PT RESTING COMFORTABLY IN BED. PT PLEASENT AND COOPERATIVE. PT HAD NO COMPLAINTS AT THIS TIME. ALFA MOORE [facility]
--- NOTE | 2017-09-11 13:55 | NUR ---
HEART RATE NOW RANGING FROM 80-120'S [facility]OOK[facility]
--- NOTE | 2017-09-11 19:30 | NUR ---
3-7 NURSE STATED SHE TURNED OFF THE CARDIZEM DRIP BECAUSE HR WAS IN THE 60'S.
--- NOTE | 2017-09-11 20:30 | NUR ---
PT ASSESSED, VITALS OBTAINED, AND MEDICATION GIVEN PER ORDER. PT COOPERATIVE AT THIS TIME BUT REFUSING HIS EYE DROPS. RESPIRATIONS EASY AND UNLABORED. PULSE OX AT 93% ON ROOM AIR. PT ADVISED TO WEAR SUPPLEMENTAL OXYGEN WHEN FEELING SOB. ALL NEEDS CURRENTLY MET.
[2017-09-12] VITALS: BP 142/94
--- NOTE | 2017-09-12 02:00 | NUR ---
CALLED DR. MCELROY ANSWERING SERVICE DUE TO PT INCREASE IN HEART RATE. INFORMED ANSWERING SERVICE OF NEED TO SPEAK TO PHYSICIAN. SHE STATED THAT HE WILL GIVE ME A CALL BACK WHEN SHE REACHES HIM. AWAITING CALL AT THIS TIME.
[2017-09-12 04:00] VITALS: BP 140/82
--- NOTE | 2017-09-12 04:15 | NUR ---
WHILE WAITING STEEPING PRESS OPERATOR FROM DR. MCELROY, SPOKE WITH DR. NESTOR ALONSO. DR. ALONSO ADVISED ME TO OBTAIN A MANUAL BP AND APICAL HR ON PT. RESULTS WERE 140/82. 115 FOR HEART RATE. UPON RETURNING A CALL TO DR. ALONSO, I WAS ADVISED TO FIND OUT WHO IS COVERING FOR DR. MCELROY AT THIS TIME. DURING THIS TIME, DR. MCELROY RETURNED A PHONE CALL REGARDING THE CONDITION OF THE PT. I WAS ADVISED TO GIVE THE TOPROL MEDICATION EARLY AND TOLD HOLD OFF ON RESTARTING THE CARDIZEM DRIP AT THIS TIME.
--- NOTE | 2017-09-12 04:25 | NUR ---
TOPROL GIVEN AT THIS TIME PER DR. MCELROY DUE TO TACHYCARDIA. WILL MONITOR EFFECTIVENESS.
--- NOTE | 2017-09-12 04:36 | NUR ---
HYDOCAN GIVEN TO PT DUE TO COUGH. WILL MONITOR FOR EFFECTIVENESS.
[2017-09-12 05:16] LABS: CREATININE 2.39 mg/dL (0.70-1.30); POTASSIUM 4.2 mmol/L (3.5-5.1)
--- NOTE | 2017-09-12 05:35 | NUR ---
HYDOCAN EFFECTIVE AT THIS TIME.
[2017-09-12 07:30] VITALS: BP 146/90
--- NOTE | 2017-09-12 07:33 | NUR ---
PT HEART RATE REMAINS THE SAME AT THIS TIME.
--- NOTE | 2017-09-12 08:00 | NUR ---
PATIENT SITTING UPRIGHTIN BED WITH NO VERBAL COMPLAINTS AT THIS TIME. PATINT HAS HEEL BOOT IN PLACE, CALL LIGHT WITH IN REACH. BED IN LOWEST POSTITON. OMAR LANIER [facility]
--- NOTE | 2017-09-12 09:00 | NUR ---
PT REFUSED COMPLETE BED BATH, AGREED TO PARTIAL. BED AND GOWN CHANGED. PATIENT TOLERATED WELL. [facility]
--- NOTE | 2017-09-12 10:00 | NUR ---
PATIENT RESTING SUPINE IN BED, NO VERBAL COMLAINTS OMAR LANIER [facility]
--- NOTE | 2017-09-12 10:59 | NUR ---
PHYSICAL THERAPY Mr Jeffery seen this AM 1:1 for his physical therapy session. Pt said that he knows why i am here and juan manuel not getting up. I said that i was here for his therapy session and Joe said i dont care what you do juan manuel not getting up. Pt very adamant about not going to get up. SIERRA AGUILA CHICKEN RAISER.
--- NOTE | 2017-09-12 11:10 | NUR ---
DR MCELROY IN TO NOAH PT. PT AND HIS VERY CONCERNED ABOUT PTS LASIX BEING ON HOLD R/T HEART ISSUES. ONE TIME ORDER FOR IV LASIX RECEIVED
[2017-09-12 11:45] VITALS: BP 110/90
--- NOTE | 2017-09-12 12:00 | NUR ---
PATIENT PLEASANT, SITTING UPRIGHT IN BED, PT HAS NO VERBAL COMPLAINTS AT THIS TIME. IV SITE IS OUT OF DATE BUT REMAINS PATENT. ASVISED PT SITE IS OUT OF DATE BUT REMINS PATENT, HE REQUESTED TO KEEP IV INSTEAD OF HAVING NEW ONE STARTED DUE TO MULTIPLE FAILED ATTEMPS ON LAST IV. [facility]
--- NOTE | 2017-09-12 13:45 | NUR ---
PT SUPINE IN BED ON LEFT SIDE SLEEPING. OMAR LANIER [facility]
[2017-09-12 16:00] VITALS: BP 133/60
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
[2017-09-12 20:00] VITALS: BP 132/62
--- NOTE | 2017-09-12 20:30 | NUR ---
PT DENIES ANY PAIN AT THIS TIME. IV RUNNING PER PHYSICIAN ORDER. IV SITE PATENT, DRESSING DRY AND IN TACT. LUNG SOUNDS DIMINISHED THROUGHOUT ALL MONTES[place]. ACTIVE BOWEL SOUNDSX4. RESPIRATIONS EASY AND UNLABORED. SUPPLEMENTAL OXYGEN VIA NC IN PLACE AT THIS TIME. HEART RATE IRREGULAR, CM SHOWS A-FIB. NO S/S OF DISTRESS.
--- NOTE | 2017-09-12 23:38 | NUR ---
PT C/O COUGH. HYDOCAN ADMINISTERED. WILL MONITOR FOR EFFECTIVENESS.
[2017-09-13] VITALS: BP 134/68
--- NOTE | 2017-09-13 00:38 | NUR ---
COUGH MEDICINE EFFECTIVE PER PT. PT RESTING AT THIS TIME. RESPIRATIONS EASY. NO S/S OF DISTRESS.
--- NOTE | 2017-09-13 04:58 | NUR ---
24 HR chart check completed.
--- NOTE | 2017-09-13 06:00 | NUR ---
PT AM ASSESSMENT COMPLETE, NO S/S OF DISTRESS. RESPIRATIONS EASY AND UNLABORED. NO COMPLAINTS VOICED AT THIS TIME.
[2017-09-13 06:26] LABS: HEMATOCRIT 26.2 % (42.0-52.0); HEMOGLOBIN 8.4 g/dl (14.0-18.0); MEAN CELL VOLUME 109.2 fl (80.0-94.0); MEAN CORPUSCULAR HGB CONC 32.1 g/dl (33.0-37.0); MEAN PLATELET VOLUME 9.7 fl (9.6-12.3); PLATELET COUNT AUTOMATED 177 10*3/uL (130-400); RED CELL DISTRI WIDTH 13.2 % (0-14.5); WHITE BLOOD COUNT 9.8 10*3/uL (4.8-10.8)
[2017-09-13 06:55] LABS: CREATININE 1.87 mg/dL (0.70-1.30); PHOSPHOROUS 3.3 mg/dL (2.5-4.9); POTASSIUM 4.5 mmol/L (3.5-5.1)
[2017-09-13 07:47] LABS: PLATELET SUFFICIENCY NORMAL (NORMAL); TOTAL CELLS COUNTED 100 #CELLS
[2017-09-13 08:00] VITALS: BP 140/80
--- NOTE | 2017-09-13 08:47 | NUR ---
PHYSICAL THERAPY Patient presented to therapy in supine and was in a horrible mood and questioned everything this MOTOR COACH BUS DRIVER suggested that we do for therapy. Patient swore repeatedley and said therapy was stupid, ineffective , and useless. [id number] this MOTOR COACH BUS DRIVER had the patient perform ther ex in supine, after the patient had AGREED to participate in physical therapy. Patient performed ther ex in supine in all planes of movement 2 x 10 reps each. Patient demanded therapy stop at one point, so therapy was stopped. Patient was left in supine with call light within reach. Patient was 1:1 with this MOTOR COACH BUS DRIVER for 10 minutes total. ROWAN MADRID MOTOR COACH BUS DRIVER
--- NOTE | 2017-09-13 11:25 | NUR ---
SW FAXED HOME HEALTH REFERRAL TO [facility].
[2017-09-13] MEDS ORDERED: HYCODAN/HYDROMET5 ML PO (11:36)
[2017-09-13] MEDS ORDERED: LEVAQUIN750 M1 PO (11:36)
[2017-09-13] MEDS ORDERED: METOPROLOL SUC100 M1 PO (11:39)
[2017-09-13] MEDS ORDERED: DILTIAZEM 24HR120 MG PO (11:39)
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
--- NOTE | 2017-09-13 13:00 | NUR ---
LUIS ARMANDO FAXED UPDATED ORDER FOR HOME HEALTH SERVICES TO [facility]. LUIS ARMANDO ALSO SPOKE WITH DEMETRIA TO ALERT THAT NEW ORDER WAS FAXED.
--- NOTE | 2017-09-13 16:27 | NUR ---
PHYSICAL THERAPY CO-SIGN I approve of the Phyical Therapy notes written above. NATAN GUY PT
== END 2017-09-13 12:45 | disposition home health service (06) | DRG 871 ==
LOC: ED 14:22 → 4E 17:20 → EDHOLD 17:20 → 4E 17:22
PROVIDERS: Family Medicine; Internal Medicine; Student in an Organized Health Care Education/Training Program; ADMIT Internal Medicine
PROC: BD1BYZZ Fluoroscopy of Mouth/Oropharynx using Other Contrast (ICD-10-PCS; principal; 2017-09-09)
DX: A41.9 Sepsis, unspecified organism (principal); J69.0 Pneumonitis due to inhalation of food and vomit; J96.00 Acute respiratory failure, unspecified whether with hypoxia or hypercapnia; N17.9 Acute kidney failure, unspecified; E44.0 Moderate protein-calorie malnutrition; D68.59 Other primary thrombophilia; E83.39 Other disorders of phosphorus metabolism; N18.3 Chronic kidney disease, stage 3 (moderate); I13.0 Hypertensive heart and chronic kidney disease with heart failure and stage 1 through stage 4 chronic kidney disease, or unspecified chronic kidney disease; I50.32 Chronic diastolic (congestive) heart failure; E87.1 Hypo-osmolality and hyponatremia; J44.0 Chronic obstructive pulmonary disease with (acute) lower respiratory infection; J44.1 Chronic obstructive pulmonary disease with (acute) exacerbation; I48.2 Chronic atrial fibrillation; D53.9 Nutritional anemia, unspecified; D72.810 Lymphocytopenia; K21.9 Gastro-esophageal reflux disease without esophagitis; E78.5 Hyperlipidemia, unspecified; I73.9 Peripheral vascular disease, unspecified; F41.9 Anxiety disorder, unspecified; F32.9 Major depressive disorder, single episode, unspecified; Z88.8 Allergy status to other drugs, medicaments and biological substances; Z90.49 Acquired absence of other specified parts of digestive tract; Z89.422 Acquired absence of other left toe(s); Z87.891 Personal history of nicotine dependence; Z99.81 Dependence on supplemental oxygen; Z79.84 Long term (current) use of oral hypoglycemic drugs; Z79.899 Other long term (current) drug therapy; Z68.24 Body mass index [BMI] 24.0-24.9, adult

== ENCOUNTER 2017-09-18 07:18 | Emergency (ER) | payer MEDICARE ==
[~2017-09-18 07:18] MED LIST changes: +ACULAR 5 ML5 M1 OPH; +ATROPINE SULFATE2 M2 OD; +BRIMONIDINE TART5 ML OPH; +DILTIAZEM 24HR120 MG PO; +DORZOLAMIDE HCL10 ML OP; +ECONOPRED PLUS10 M1 OPH; +FEOSOL325 MG PO; +HYCODAN/HYDROMET5 ML PO; +K-TAB20 MEQ PO; +LEVAQUIN750 M1 PO; +METOPROLOL SUC100 M1 PO; +OCUFLOX 0.3% 5 M5 ML OPH; +PREDNISOLONE 13.5 M1 OP; +TOBRADEX 0.3-03.5 GM OPH; +VITAMIN B121000 MC1 PO
[2017-09-18 07:54] VITALS: BP 00/00
== END 2017-09-18 07:54 | disposition expired ==
LOC: ED 07:18
DX: I46.9 Cardiac arrest, cause unspecified (principal); I13.0 Hypertensive heart and chronic kidney disease with heart failure and stage 1 through stage 4 chronic kidney disease, or unspecified chronic kidney disease; N18.3 Chronic kidney disease, stage 3 (moderate); I50.31 Acute diastolic (congestive) heart failure; K21.9 Gastro-esophageal reflux disease without esophagitis; E78.5 Hyperlipidemia, unspecified; I48.2 Chronic atrial fibrillation; Z87.891 Personal history of nicotine dependence; Z88.8 Allergy status to other drugs, medicaments and biological substances; Z79.899 Other long term (current) drug therapy